=== PATIENT | male | born 1970 ===

== ENCOUNTER 2021-05-07 17:37 | Emergency (ER) | payer OTHER, SELFPAY ==
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
[2021-05-07 17:49] VITALS: BP 140/65; BP 157/84; PULSE 94; PULSE 98; RESP 17; TEMP 36.8; O2SAT 100; O2SAT 99; BMI 14.8
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
[2021-05-07] MEDS: iohexoL 350 MG/ML 100 ML INFUS..BTL IV (19:38)
[2021-05-07] MEDS: 0.9 % Sodium Chloride 1,000 ML 999 ML IV (19:56)
[2021-05-07 19:57] VITALS: BP 148/80; PULSE 63; RESP 16; O2SAT 95
--- NOTE | 2021-05-07 21:20 | PC.NURSE ---
PT CT SHOWS CERVICAL SPINE HEMATOMA. PT IN HARD COLLAR, CERVICLE SPINE PRECAUTIONS MAINTAINED. PT AWARE TO REMAIN FLAT, STILL. PT ABLE TO MOVE ALL EXTREMITIES. NO NEURO DEFICITS NOTED.
[2021-05-07 21:25] LABS: MANUAL DIFF FLAG NO
[2021-05-07 21:29] LABS: Basophils Percent Auto 0.3 % (0-2); Eosinophils Absolute Auto 0.1 X10*3/uL (0.0-0.4); Hematocrit 35.3 % (42.0-52.0); Hemoglobin 11.6 g/dl (14.0-18.0); Imm Gran Abs Auto 0.05 X10*3/uL (0.00-0.03); Imm Gran Pct Auto 0.5 % (0.0-0.4); Lymphocytes Absolute Auto 2.1 X10*3/uL (1.2-4.9); Lymphocytes Percent Auto 20.2 % (20-40); Mean Corpuscular HGB Conc 32.9 g/dl (31.0-36.0); Mean Corpuscular Hemoglobin 30.4 pg (27.0-33.0); Mean Corpuscular Volume 92.7 fL (80.0-98.0); Mean Platelet Volume 8.9 fL (9.4-12.4); Monocytes Absolute Auto 0.7 X10*3/uL (0.1-1.2); Monocytes Percent Auto 6.2 % (2-11); Neutrophils Absolute Auto 7.5 x10*3/uL (2.0-8.3); Neutrophils Percent Auto 71.8 % (45-73); Platelet Count 315 X10*3/uL (160-400); Red Blood Count 3.81 X10*6/uL (4.60-5.80); Red Cell Distribution Width 14.3 % (11.0-16.0); White Blood Count 10.5 X10*3/uL (4.8-10.8)
[2021-05-07 21:34] LABS: INTERNATIONAL NORM RATIO 1.1 (0.9-1.1); Prothrombin Time 12.2 SEC (9.9-13.0)
--- NOTE | 2021-05-07 21:35 | PC.NURSE ---
VOIDED X 2 IN URINAL.
[2021-05-07 21:36] LABS: Partial Thromboplastin Time 35.4 SEC (24.1-38.0)
--- NOTE | 2021-05-07 21:45 | PC.NURSE ---
NURSE TO NURSE REPORT GIVEN TO WINNIE AT [facility]. WAITING AMBULANCE TRANSFER.
[2021-05-07 21:51] LABS: Alanine Aminotransferase 33 U/L (0-40); Albumin Level 3.1 g/dL (3.5-5.0); Alkaline Phosphatase 144 U/L (39-117); Anion Gap 9 (12-20); Aspartate Amino Transferase 45 U/L (5-37); Bilirubin Total < 0.2 mg/dL (0.0-1.0); Blood Urea Nitrogen 16 mg/dL (9-16); COVID-19 Test Negative (Negative); Calcium 8.1 mg/dL (8.4-10.2); Carbon Dioxide 26 mmol/L (22-29); Chloride 106 mmol/L (96-108); Creatinine Clr Calc Pharmacy 66.7; Estimated Glomerular Filt Rate > 60; Glucose Random 93 mg/dL (60-115); Potassium 3.9 mmol/L (3.3-5.1); Sodium 137 mmol/L (135-145); Total Protein 5.9 g/dL (6.5-8.0)
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
== END 2021-05-07 22:37 | disposition short-term general hospital (02) ==
PROVIDERS: Physician Assistant; Emergency Provider Internal Medicine; PCP Physician Assistant
DX: S14.105A Unspecified injury at C5 level of cervical spinal cord, initial encounter (principal); V03.00XA Pedestrian on foot injured in collision with car, pick-up truck or van in nontraffic accident, initial encounter; Y93.01 Activity, walking, marching and hiking; Y92.414 Local residential or business street as the place of occurrence of the external cause; Y99.9 Unspecified external cause status
CPT/HCPCS: 36415; 70450; 71260; 72125; 74177; 80053; 85025; 85610; 85730; 87635; 96360; 99285; Q9967

== ENCOUNTER 2021-08-17 14:43 | Emergency (ER) | payer OTHER, SELFPAY ==
--- NOTE | ~2021-08-17 | XR_ITS ---
EXAMINATION: XR ELBOW, LEFT CLINICAL INFORMATION: Injury, swelling. COMPARISON: No similar priors. TECHNIQUE: AP, lateral, and oblique views of the left elbow. FINDINGS: No acute fractures or malalignment. No joint effusion. There is significant soft tissue swelling adjacent to the olecranon process. XR/XR elbow LT min 3V IMPRESSION: No acute fractures or malalignment. Significant soft tissue swelling adjacent to the olecranon process be seen with bursitis. Correlate clinically.
[2021-08-17 15:33] VITALS: BP 146/85; PULSE 61; RESP 18; TEMP 36.6; O2SAT 96; BMI 14.3
== END 2021-08-17 17:45 | disposition left against medical advice (07) ==
PROVIDERS: Emergency Provider Emergency Medicine; PCP Physician Assistant
DX: M25.422 Effusion, left elbow (principal)
CPT/HCPCS: 73080; 99282; 99283

== ENCOUNTER 2023-12-30 13:33 | Inpatient (IN) | payer OTHER, SELFPAY ==
--- NOTE | ~2023-12-30 | XR_ITS ---
EXAMINATION: XR CHEST CLINICAL INFORMATION: Rapid, unexplained weight loss, heavy smoker COMPARISON: Chest radiograph 08/17/2018 TECHNIQUE: 2 views of the chest were obtained. FINDINGS: The lungs are adequately expanded. No focal consolidation. No pleural effusions or pneumothorax. The cardiomediastinal silhouette is within normal limits. No acute osseous abnormality. XR/XR chest 2V IMPRESSION: No acute pulmonary disease. Electronically signed by: Leander Farias MD 01/04/2024 08:40 AM EDT
--- NOTE | 2023-12-30 13:43 | ED.GENADULT ---
HPI - General Adult General Chief complaint: Psychiatric Symptoms Stated complaint: Crisis Time Seen by Provider: 12/30/23 13:43 Source: patient Mode of arrival: ambulatory Limitations: no limitations History of Present Illness ED Provider: marielena LONG narrative: Patient is a 53-year-old male with history of asthma, substance use disorder on methadone presenting to the emergency department with complaint of depression, suicidal ideation, history of attempting to overdose on street drugs in the past, plan would be to do the same now. Reports decreased appetite. Admits to recent cocaine and heroin use. Denies any homicidal ideation. States he has been off of his wellbutrin for the past month. Denies any current physical complaints. MD complaint: depression, suicidal ideation Onset (ago): day(s) Treatments prior to arrival: none Related Data Home Medications ?Medication ?Instructions ?Recorded ?Confirmed No Known Home Meds 12/30/23 12/30/23 Allergies Allergy/AdvReac Type Severity Reaction Status Date / Time seafood Allergy Severe anaphylaxis Uncoded 12/30/23 14:02 SEAFOOD Allergy Unknown SWELLING Uncoded 12/30/23 14:02 Review of Systems Review of Systems: As per HPI. Yes all other systems are reviewed and are negative Constitutional: Constitutional: Reports as per HPI [facility] Past Medical History Medical History (Updated 12/30/23 @ 16:27 by Mena Limon NP) Asthma Social History Social History Smoked in Last 30 Days: No Use of substances other than those prescribed or required for medical reasons: Yes Advance Directives: No Advance Directives Information Provided: Yes Physical Exam ED Vital Signs: Vital Signs - 24 hr 12/30/23 14:00 12/30/23 17:30 Temperature 98.9 F Pulse Rate 92 Respiratory Rate 18 16 Blood Pressure 121/82 Pulse Oximetry 98 Oxygen Delivery Method Room Air BMI result Body Mass Index 23.6 Vital signs have been reviewed and appear to be correct. Blood pressure normal. Heart rate normal. Respiratory rate normal. Temperature normal. Oxygen saturation normal. Const General: cooperative, healthy appearing and no acute distress Nutritional Appearance: thin Orientation/consciousness: oriented to person, oriented to place, oriented to time and patient oriented x3 Limitations: no limitations HENMT Head: Yes normocephalic and Yes atraumatic Ears: external ears normal General nose exam: Normal external nose present Face and sinus: Yes face symmetric Mouth: oropharynx normal and moist mucous membranes Throat: Yes uvula midline Eyes Pupils: Equal, round and reactive pupils present Neck Neck: Yes normal visual inspection and Yes supple Resp Effort & Inspection: normal respiratory effort and able to speak in complete sentences Auscultation: clear to auscultation bilaterally Cardio Rate: regular rate Rhythm: regular rhythm Heart sounds: S1 normal heart sound present and S2 normal heart sound present GI Palpation (GI): Soft to palpation and nontender Auscultation: normoactive bowel sounds General: Yes no CVA tenderness Back/Spine/Pelvis Back: no CVA tenderness Skin General skin exam: elasticity normal and turgor normal Neuro General: oriented to person, oriented to place, oriented to time, patient oriented x3, moves all extremities, no focal motor deficits and CN's II-XI intact bilaterally Cranial nerves: Yes Equal, round and reactive pupils present Cognition (Neuro): normal cognition Extrem General: Yes full ROM, Yes no pedal edema and Yes no calf tenderness Psych Mental Status: mental status grossly normal Affect: normal affect Thought process: Normal thought process present Medical Decision Making Medical Decision Making MDM Narrative: Patient is a 53-year-old male with history of asthma, substance use disorder on methadone presenting to the emergency department with complaint of depression, suicidal ideation, history of attempting to overdose on street drugs in the past, plan would be to do the same now. On exam patient is awake, A+Ox3, VS WNL, afebrile, normal neurological exam without focal deficits, physical exam findings as above. Given reported symptoms and physical exam findings, initial differential includes depression, anxiety, suicidal ideation. Labs notable for slight anemia not at transfusion level. Urine drug screen positive for opiates, methadone, fentanyl, cocaine, THC. Will medically clear patient at this time for CARE team evaluation. Per CARE team patient too drowsy for assessment, will reattempt in the morning. Differential Diagnosis Differential Diagnoses: The differential diagnosis associated with the presentation includes As per [facility]. Admission/Observation Consideration of admission/observation: Escalation of care including admission/observation considered Consult Healthcare Provider Management of the patient was discussed with: Behavioral Health Provider Lab Data [facility] Lab Attestation statement: I reviewed the patient's lab results. As per MDM 12/30/23 14:25 12/30/23 14:24 Labs: Lab Results 12/30/23 12/30/23 Range/Units 14:24 14:25 WBC 8.2 (4.8-10.8) X10*3/uL RBC 4.01 L (4.60-5.80) X10*6/uL Hgb 12.8 L (14.0-18.0) g/dl Hct 37.6 L (42.0-52.0) % MCV 93.8 (80.0-98.0) fL MCH 31.9 (27.0-33.0) pg MCHC 34.0 (31.0-36.0) g/dl RDW 12.8 (11.0-16.0) % Plt Count 287 (160-400) X10*3/uL MPV 10.0 (9.4-12.4) fL Immature Gran % (Auto) 0.4 (0.0-0.4) % Neut % (Auto) 69.9 (45-73) % Lymph % (Auto) 23.5 (20-40) % [place] % (Auto) 4.6 (2-11) % Eos % (Auto) 1.2 (0-4) % Baso % (Auto) 0.4 (0-2) % Lymph # (Auto) 1.9 (1.2-4.9) X10*3/uL [place] # (Auto) 0.4 (0.1-1.2) X10*3/uL Eos # (Auto) 0.1 (0.0-0.4) X10*3/uL Baso # (Auto) 0.0 (0.0-0.2) X10*3/uL Abs Immat Gran (auto) 0.03 (0.00-0.03) X10*3/uL Absolute Neuts (auto) 5.8 (2.0-8.3) x10*3/uL Absolute Nucleated RBC 0.000 (0.0-0.012) X10*3/uL Nucleated RBC % (auto) 0.0 (0.0-0.2) /100WBC Sodium 140 (135-145) mmol/L Potassium 3.9 (3.3-5.1) mmol/L Chloride 105 (96-108) mmol/L Carbon Dioxide 29 (22-29) mmol/L Anion Gap 10 L (12-20) BUN 12 (9-16) mg/dL Creatinine 1.21 (0.5-1.4) mg/dL Estim Creat Clear Calc 67.5 Estimated GFR > 60 Random Glucose 98 (60-115) mg/dL Calcium 8.9 D (8.4-10.2) mg/dL Total Bilirubin 0.2 (0.0-1.0) mg/dL AST 23 (5-37) U/L ALT 19 (0-40) U/L Alkaline Phosphatase 106 (39-117) U/L Total Protein 6.6 (6.5-8.0) g/dL Albumin 3.8 (3.5-5.0) g/dL Urine Color Dark Yellow Urine Appearance Clear Urine pH 5.5 (5.0-9.0) Ur Specific [place] >= 1.030 H (1.005-1.025) Urine Protein 30 (1+) H (Neg-Trace) mg/dL Urine Glucose (UA) Negative (Negative) mg/dL Urine Ketones Trace (Negative) mg/dL Urine Blood Negative (Negative) Urine Nitrite Negative (Negative) Ur Leukocyte Esterase Trace H (Negative) Urine RBC 0-2 (0-2) /HPF Urine WBC 0-5 (0-5) /HPF Ur Squamous Epith Cells 0-2 (0-2) /HPF Urine Bacteria None Seen (None Seen) Hyaline Casts 0-2 (0-2) /LPF Urine Opiates Screen POSITIVE H (Not Detect) Ur Buprenorphine Scrn Not Detected (Not Detect) ng/mL Ur Oxycodone Screen Not Detected (Not Detect) ng/mL Urine Methadone Screen Positive H (Not Detect) ng/mL Urine Fentanyl Screen POSITIVE H (Not Detect) Ur Barbiturates Screen Not Detected (Not Detect) Ur Phencyclidine Scrn Not Detected (Not Detect) Ur Amphetamines Screen Not Detected (Not Detect) U Benzodiazepines Scrn Not Detected (Not Detect) Urine Cocaine Screen POSITIVE H (Not Detect) U Marijuana (THC) Screen POSITIVE H (Not Detect) Ethyl Alcohol < 10 mg/dL External Record Review External record reviewed: Inpatient record, Office record and Outpatient record Discharge Plan Discharge Clinical Impression: Suicidal ideation, Depression Patient Disposition: Still a Patient Prescriptions: No Action No Known Home Meds Interventions: [place]-Suicide Risk Severity Scale Last Done: 12/30/23 13:58 Print Language: Ethiopian
[2023-12-30 14:00] VITALS: BP 121/82; PULSE 92; RESP 18; TEMP 37.2; O2SAT 98; BMI 23.6
[2023-12-30 14:30] LABS: MANUAL DIFF FLAG NO
[2023-12-30 14:35] LABS: Appearance Urine Clear; Color Urine Dark Yellow; Glucose Urine UA Negative (Negative); Leukocyte Esterase Urine Trace (Negative); Nitrite Urine Negative (Negative); PH 5.5 (5.0-9.0); Specific Gravity - Urine >= 1.030 (1.005-1.025); UMIC TRIGGER UACC YES; Urine Blood Negative (Negative); Urine Ketones Trace mg/dL (Negative); Urine Protein 30 (1+) mg/dL (Neg-Trace)
[2023-12-30 14:36] LABS: Basophils Percent Auto 0.4 % (0-2); Eosinophils Absolute Auto 0.1 X10*3/uL (0.0-0.4); Eosinophils Percent Auto 1.2 % (0-4); Hematocrit 37.6 % (42.0-52.0); Hemoglobin 12.8 g/dl (14.0-18.0); Imm Gran Abs Auto 0.03 X10*3/uL (0.00-0.03); Imm Gran Pct Auto 0.4 % (0.0-0.4); Lymphocytes Absolute Auto 1.9 X10*3/uL (1.2-4.9); Lymphocytes Percent Auto 23.5 % (20-40); Mean Corpuscular Hemoglobin 31.9 pg (27.0-33.0); Mean Corpuscular Volume 93.8 fL (80.0-98.0); Monocytes Absolute Auto 0.4 X10*3/uL (0.1-1.2); Monocytes Percent Auto 4.6 % (2-11); Neutrophils Absolute Auto 5.8 x10*3/uL (2.0-8.3); Neutrophils Percent Auto 69.9 % (45-73); Platelet Count 287 X10*3/uL (160-400); Red Blood Count 4.01 X10*6/uL (4.60-5.80); Red Cell Distribution Width 12.8 % (11.0-16.0); White Blood Count 8.2 X10*3/uL (4.8-10.8)
[2023-12-30 14:46] LABS: Bacteria Urine None Seen (None Seen); Hyaline Casts Urine 0-2 /LPF (0-2); RBC Urine 0-2 /HPF (0-2); Squamous Epithelial Cell Urine 0-2 /HPF (0-2); WBC Urine 0-5 /HPF (0-5)
[2023-12-30 14:51] LABS: Amphetamine Screen Urine Not Detected (Not Detect); Barbiturates, Urine Not Detected (Not Detect); Benzodiazepines Screen Urine Not Detected (Not Detect); Buprenorphine Scr Not Detected (Not Detect); Cannabinoid Screen Urine POSITIVE (Not Detect); Cocaine Screen Urine POSITIVE (Not Detect); Fentanyl, urine POSITIVE (Not Detect); Methadone Screen, Urine Positive (Not Detect); Opiate Screen Urine POSITIVE (Not Detect); Oxycodone Screen Urine Not Detected (Not Detect); Phencyclidine Screen Urine Not Detected (Not Detect)
[2023-12-30 15:11] LABS: Alanine Aminotransferase 19 U/L (0-40); Albumin Level 3.8 g/dL (3.5-5.0); Alkaline Phosphatase 106 U/L (39-117); Anion Gap 10 (12-20); Aspartate Amino Transferase 23 U/L (5-37); Bilirubin Total 0.2 mg/dL (0.0-1.0); Blood Urea Nitrogen 12 mg/dL (9-16); Calcium 8.9 mg/dL (8.4-10.2); Carbon Dioxide 29 mmol/L (22-29); Chloride 105 mmol/L (96-108); Creatinine Clr Calc Pharmacy 67.5; Estimated Glomerular Filt Rate > 60; Ethanol < 10 mg/dL; Glucose Random 98 mg/dL (60-115); Potassium 3.9 mmol/L (3.3-5.1); Sodium 140 mmol/L (135-145); Total Protein 6.6 g/dL (6.5-8.0)
[2023-12-30 17:30] VITALS: RESP 16
--- NOTE | 2023-12-30 17:42 | PC.NURSE ---
Patient resting in bed at this time, respirations even and unlabored, no apparent distress. Offering no complaints at this time. Pt is endorsing suicidal thoughts with a plan to overdose. Patient aware of plan of care for CARE team follow up tomorrow when he is more sober
--- NOTE | 2023-12-30 18:58 | PC.NURSE ---
Assumed care of pt. Pt lying on stretcher, respirations even and unlabored, no acute distress at this time.
[2023-12-30 22:00] VITALS: RESP 16
[2023-12-31 05:29] VITALS: BP 150/69; PULSE 51; RESP 16; O2SAT 98
--- NOTE | 2023-12-31 08:47 | HE.PHANOTE ---
RE methadone Pt receives methadone 60 mg from [facility]. Last dosed 12/30/23 @[id number] [address]
[2023-12-31] MEDS: methADONE HCl 20 MG/2 ML ORAL.CONC 60 MG PO (08:54)
--- NOTE | 2023-12-31 13:34 | MHC.CARE ---
T/W faxed over clinical information including crisis assessment, labs, utox, and facesheet to [facility] for consideration of inpatient admission for 01/01/24 when they stated they could admit
[2023-12-31 19:15] VITALS: BP 135/73; PULSE 50; RESP 16; O2SAT 98
[2024-01-01 04:05] VITALS: BP 156/80; PULSE 52; RESP 15; TEMP 36.9; O2SAT 98
--- NOTE | 2024-01-01 07:49 | PC.NURSE ---
Assumed care of patient at 0645, patient appears to be in no apparent distress this am, ate breakfast and is now currently sitting watching TV. Pt offers no complaints or concerns to this RN. Continue plan of care for inpatient bedsearch at this time
[2024-01-01] MEDS: methADONE HCl 20 MG/2 ML ORAL.CONC 60 MG PO (10:08)
[2024-01-01 15:11] VITALS: RESP 14
--- NOTE | 2024-01-01 19:13 | MHC.CARE ---
pt continues to be inpatient bedsearch. Pt initial EXA completed, confirmation submission ID # [id number]
--- NOTE | 2024-01-01 19:30 | PC.NURSE ---
patient appears in no distress at present relaxing in room, respirations even and unlabored.
--- NOTE | 2024-01-02 07:27 | PC.NURSE ---
Assumed care of patient at 0645. At this time the patient is eating breakfast in their room. No signs of distress observed.
[2024-01-02 08:14] VITALS: BP 151/80; PULSE 55; RESP 14; O2SAT 99
--- NOTE | 2024-01-02 08:37 | ECG_ITS ---
Test Reason : check for prelonged QT Blood Pressure : / mmHG Vent. Rate : 068 BPM Atrial Rate : 068 BPM P-R Int : 128 ms QRS Dur : 086 ms QT Int : 412 ms P-R-T Axes : 078 043 074 degrees QTc Int : 438 ms Normal sinus rhythm Biatrial enlargement Nonspecific ST abnormality Abnormal ECG No previous ECGs available Referred By: Generic ED Physician Electronically Signed By:TARAS VARGAS
--- NOTE | 2024-01-02 08:54 | MHC.EDTECH ---
Patient ambulated to bathroom to shower, linen and room clean. RN aware
[2024-01-02] MEDS: methADONE HCl 20 MG/2 ML ORAL.CONC 60 MG PO (09:34)
[2024-01-02 13:13] VITALS: BP 157/85; PULSE 62; RESP 16; TEMP 36.6; O2SAT 98
[2024-01-02 13:14] VITALS: BMI 14.2
[2024-01-02] MEDS: Flu Vacc TS2024-25(6mos up)/PF 0.5 ML SYRINGE IM (14:03)
--- NOTE | 2024-01-02 17:09 | PC.ADMIT ---
Maxi was admitted to at 1345? from the pod on a CV for treatment of SI and polysubstance use. He states that his suicidal ideation arises from multiple factors including losing his 22 year old son to cancer and having both his income and housing at risk. He felt that it was time to give up and attempted to end his life via overdose. At age 53 this is his first psychiatric admission, though he has been a patient of [facility] years ago for treatment of appendicitis and bowel obstruction. He was initially upset to have survived his suicide attempt, but now is glad to be alive and denies SI stating, ?I still feel afraid though.? He acknowledges occasional desires to self harm, but will come to staff if these urges occur. He is polite and friendly throughout the admission process with appropriate speech and a linear thought process.Tox screen is positive for THC, methadone, cocaine, fentanyl, and opiates. He endorses daily use of marijuana, crack cocaine, opiates, and methadone which he received through [facility] (60mg dose confirmed in ED). He denies withdrawal symptoms. He is only an occasional alcohol user, thoguh when he drinks, about once per month, he has about 6. He ambulates independently but reports falls in the past 6 months, primarily related to intoxication Skin check was remarkable only for surgical scars and bilateral onychomycosis. Maxi is concerned about his severe weight loss, over 60lbs leaving him at 95lbs and a BMI <15. Patient is placed on 15 minute checks for safety.
[2024-01-02 19:39] VITALS: BP 137/66; PULSE 55; TEMP 35.8; O2SAT 97
[2024-01-03] MEDS: methADONE HCl 20 MG/2 ML ORAL.CONC 60 MG PO (07:43)
[2024-01-03 08:00] VITALS: BP 141/81; PULSE 60; RESP 18; TEMP 36.4; O2SAT 96
[2024-01-03 08:42] LABS: Estimated Average Glucose 100 mg/dL; Hemoglobin A1C 134.9903 umol/L; Hemoglobin A1c % 5.1 % (<6.0); Total Hemoglobin (HGBA1C) 4190.5025 umol/L
[2024-01-03 08:57] LABS: Cholesterol 215 mg/dL (<200); HDL Cholesterol 63 mg/dL (>40); LDL Cholesterol Calculated 136 mg/dL (<100); Triglycerides 84 mg/dL (<150)
[2024-01-03] MEDS: Milk of Magnesia 30 ML ORAL.SUSP PO (09:39)
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
[2024-01-03] MEDS: polyethylene glycoL 3350 17 GM POWD.PACK PO (12:10)
--- NOTE | 2024-01-03 13:46 | MHC.CLN ---
RE: CONSULT HT 69 WT 43.6KG BMI 14.2 IBW 160#+/-10% PT IS 60% IBW RANGE INDICATES SEVERELY UNDER WT FOR HT PREVIOUS WT HX FOLLOWS: CURRENT 43.6KG (01/02/24) PREVIOUS WT 45.3KG (08/17/21) 45.4 KG (05/07/21) PT'S WT STABLE FROM PREVIOUS ADMISSION HISTORY PT REPORTS DAILY USE OF THC, COCAINE, HEROIN, METHADONE AND OPIATES AND MAY BE CONTRIBUTOR TO LOW WT PT QUALIFIES FOR MALNUTRITION IN THE CONTEXT OF SOCIAL, BEHAVIORAL/ENVIRONMENTAL CIRCUMSTANCES REVIEWED LABS-CMP WNL ALBUMIN 3.8 WNL DIET RX: REGULAR-APPROPRIATE RECOMMEND ADDING ENSURE BID TO INCREASE KCALS SUPP TO PROVIDE 700KCALS, 40G PROTEIN WEEKLY WEIGHTS
--- NOTE | 2024-01-03 15:32 | MHC.RECOVRN ---
Pt had positive screen for unhealthy alcohol use on admission, subsequently met with t/w to discuss alcohol use and recovery supports/options. Pt reported he only drinks on special occasions and does not have an issue with alcohol. Declined need for further assessment.
--- NOTE | 2024-01-03 17:37 | P.PNPSI_ITS ---
Subjective Subjective Date of Service: 01/03/24 Reason For Visit: depression/SI Diagnostics Vital Signs (24Hr): Vital Signs - 24 hr 01/02/24 19:39 01/03/24 08:00 Temperature 96.4 F L 97.6 F Pulse Rate 55 60 Respiratory Rate 18 Blood Pressure 137/66 141/81 H Pulse Oximetry 97 96 Oxygen Delivery Method Room Air Room Air BMI result Body Mass Index 14.2 Labs 12/30/23 14:25 12/30/23 14:24 Labs: Laboratory Results - last 48 hr 01/03/24 08:11 Estimat Average Glucose 100 Hemoglobin A1c % 5.1 Triglycerides 84 Cholesterol 215 H LDL Cholesterol, Calc 136 H HDL Cholesterol 63 Medications Medications Current Medications Acetaminophen (Acetaminophen 325 Mg Tablet) 650 mg PO Q6H PRN PRN Reason: Headache/Pain Mild Scale (1-3) Al Hydroxide/Mg Hydroxide (Magnesium Hydrox/Alum Hydrox 30 Ml Oral.Susp) 30 ml PO Q6H PRN PRN Reason: Heartburn/Nausea Bupropion HCl (Bupropion Hcl Xl 150 Mg Tab.Er.24h) 150 mg PO DAILY [facility] Clonidine HCl (Clonidine Hcl 0.1 Mg Tablet) 0.1 mg PO Q4H PRN; Protocol PRN Reason: anxiety/insomnia Hydroxyzine HCl (Hydroxyzine Hcl 50 Mg Tablet) 50 mg PO Q6H PRN PRN Reason: Anxiety Magnesium Hydroxide (Milk Of Magnesia 30 Ml Oral.Susp) 30 ml PO DAILY PRN PRN Reason: Constipation Last Admin: 01/03/24 09:39 Dose: 30 ml Methadone HCl (Methadone Hcl 20 Mg/2 Ml Oral.Conc) 60 mg PO DAILY [facility] Last Admin: 01/03/24 07:43 Dose: 60 mg Nicotine (Nicotine 21 Mg Patch.Td24) 21 mg TRANSDERMA DAILY PRN PRN Reason: smoking cessation Nicotine Polacrilex (Nicotine Polacrilex 2 Mg Gum) 4 mg BUCCAL Q2H PRN PRN Reason: Nicotine Cravings Polyethylene Glycol (Polyethylene Glycol 3350 17 Gm Powd.Pack) 17 gm PO DAILY PRN PRN Reason: Constipation Allergies Allergies Allergy/AdvReac Type Severity Reaction Status Date / Time seafood Allergy Severe anaphylaxis Uncoded 12/30/23 14:02 SEAFOOD Allergy Unknown SWELLING Uncoded 12/30/23 14:02 Assessment & Plan Assessment & Plan (1) MDD (major depressive disorder), recurrent severe, without psychosis: Status: Acute Code(s): F33.2 - Major depressive disorder, recurrent severe without psychotic features (2) Cocaine use disorder: Status: Acute Code(s): F14.10 - Cocaine abuse, uncomplicated (3) Opioid use disorder: Status: Acute Code(s): F11.90 - Opioid use, unspecified, uncomplicated (4) PTSD (post-traumatic stress disorder): Status: Acute Code(s): F43.10 - Post-traumatic stress disorder, unspecified Time Spent With Patient Time: Total time managing care of this patient today ____ minutes.
[2024-01-03 20:00] VITALS: BP 130/70; PULSE 80; RESP 16; TEMP 36.9; O2SAT 98
[2024-01-03 21:57] VITALS: BP 141/82
[2024-01-03] MEDS: cloNIDine HCL 0.1 MG TABLET PO (21:57)
[2024-01-03] MEDS: hydrOXYzine HCL 50 MG TABLET PO (21:58)
[2024-01-04 08:00] VITALS: BP 135/66; PULSE 62; RESP 16; TEMP 36.9; O2SAT 99
[2024-01-04] MEDS: methADONE HCl 20 MG/2 ML ORAL.CONC 60 MG PO (08:01)
[2024-01-04] MEDS: buPROPion HCl XL 150 MG TAB.ER.24H PO (08:50)
--- NOTE | 2024-01-04 16:48 | P.PNPSI_ITS ---
Subjective Subjective Date of Service: 01/04/24 Reason For Visit: depression/SI Interim History: Met with patient; discussed with team Patient remains depressed however he says it was helpful to go to groups. Some trouble sleeping but clonidine helped; struggling with excessive self- deprecating thoughts and guilt. Agrees to increase Wellbutrin to 300 mg Mental Status Exam Mental Status Exam Narrative: Pt is alert and oriented; behavior is slow moving but cooperative, friendly and calm; patient is not in distress; dressed in casual attire, very thin, scruffy facial hair; mood is described as down and affect congruent, downcast; eye contact limited; Speech slowed and soft volume; normal prosody; psychomotor retardation present; thought process is organized and goal directed; Thought content is on depression, excessive guilt, of son, tx; otherwise pertinent to relevant topics and without any delusional content, paranoid ideations or grandiosity; denies any SI/HI. Denies AVH; there is no evidence of perceptual disturbance. Patients insight and judgment impaired. Diagnostics Vital Signs (24Hr): Vital Signs - 24 hr 01/03/24 20:00 01/03/24 21:57 01/04/24 08:00 Temperature 98.4 F 98.4 F Pulse Rate 80 62 Respiratory Rate 16 16 Blood Pressure 130/70 141/82 H 135/66 Pulse Oximetry 98 99 Oxygen Delivery Method Room Air Room Air BMI result Body Mass Index 14.2 Labs 12/30/23 14:25 12/30/23 14:24 Labs: Laboratory Results - last 48 hr 01/03/24 08:11 Estimat Average Glucose 100 Hemoglobin A1c % 5.1 Triglycerides 84 Cholesterol 215 H LDL Cholesterol, Calc 136 H HDL Cholesterol 63 Imaging Radiology Impressions: ITS Impressions Chest X-Ray 01/03/24 15:40 IMPRESSION: No acute pulmonary disease. Electronically signed by: Leander Farias MD 01/04/2024 08:40 AM EDT Medications Medications Current Medications Acetaminophen (Acetaminophen 325 Mg Tablet) 650 mg PO Q6H PRN PRN Reason: Headache/Pain Mild Scale (1-3) Al Hydroxide/Mg Hydroxide (Magnesium Hydrox/Alum Hydrox 30 Ml Oral.Susp) 30 ml PO Q6H PRN PRN Reason: Heartburn/Nausea Bupropion HCl (Bupropion Hcl Xl 300 Mg Tab.Er.24h) 300 mg PO DAILY [facility] Clonidine HCl (Clonidine Hcl 0.1 Mg Tablet) 0.1 mg PO Q4H PRN; Protocol PRN Reason: anxiety/insomnia Last Admin: 01/03/24 21:57 Dose: 0.1 mg Clonidine HCl (Clonidine Hcl 0.1 Mg Tablet) 0.1 mg PO BEDTIME [facility]; Protocol Hydroxyzine HCl (Hydroxyzine Hcl 50 Mg Tablet) 50 mg PO Q6H PRN PRN Reason: Anxiety Last Admin: 01/03/24 21:58 Dose: 50 mg Magnesium Hydroxide (Milk Of Magnesia 30 Ml Oral.Susp) 30 ml PO DAILY PRN PRN Reason: Constipation Last Admin: 01/03/24 09:39 Dose: 30 ml Methadone HCl (Methadone Hcl 20 Mg/2 Ml Oral.Conc) 60 mg PO DAILY [facility] Last Admin: 01/04/24 08:01 Dose: 60 mg Nicotine (Nicotine 21 Mg Patch.Td24) 21 mg TRANSDERMA DAILY PRN PRN Reason: smoking cessation Nicotine Polacrilex (Nicotine Polacrilex 2 Mg Gum) 4 mg BUCCAL Q2H PRN PRN Reason: Nicotine Cravings Polyethylene Glycol (Polyethylene Glycol 3350 17 Gm Powd.Pack) 17 gm PO DAILY PRN PRN Reason: Constipation Allergies Allergies Allergy/AdvReac Type Severity Reaction Status Date / Time seafood Allergy Severe anaphylaxis Uncoded 12/30/23 14:02 SEAFOOD Allergy Unknown SWELLING Uncoded 12/30/23 14:02 Assessment & Plan Assessment & Plan (1) MDD (major depressive disorder), recurrent severe, without psychosis: Status: Acute Code(s): F33.2 - Major depressive disorder, recurrent severe without psychotic features (2) PTSD (post-traumatic stress disorder): Status: Acute Code(s): F43.10 - Post-traumatic stress disorder, unspecified (3) Cocaine use disorder: Status: Acute Code(s): F14.10 - Cocaine abuse, uncomplicated (4) Opioid use disorder: Status: Acute Code(s): F11.90 - Opioid use, unspecified, uncomplicated Plan Pt is a 53 male with PMH depression, PtSD, cocaine/heroin abuse, no methadone, who presents for worsening depression, SI resulting in suicide attempt by overdose. Patient reports he has been on and off depressed for years. This summer his depression worsened when he was worried about eviction and then worried about his Section 8 housing welfare being canceled. This stress added on to chronic moderate depression triggered him to relapse on daily crack/heroin and patient further isolated himself from his family and sunk into a deeper depression and endorses, diminished interest, excessive guilt, low energy, poor concentration, poor appetite with significant weight loss, trouble sleeping and SI. During the summer he was started on low dose of Wellbutrin but did not take it for more than a few weeks which he regrets. This past week patient, embroiled in substance abuse, depression, frustration, while at a friend's house he saw a bottle of pills and in front of his friend, grabbed it and swallowed them in an impulsive suicide attempt. His friend made him vomited up and brought him to the hospital. Patient denies any history of manic type symptoms or behavior; denies any AVH; denies any history of suicide attempts prior to this. Every few months relapses with cocaine/heroin abuse; denies other drugs including alcohol abuse. Formulation/clinical reason: Years of depression and untreated trauma; no therapy and no real medication trials. Patient agrees to restart Wellbutrin sits he tolerated it and it helped him to quit smoke cigarettes. Discussing treatment for substance abuse; patient was sober on Vivitrol and wished to his back on it. Currently on methadone Hospital course: 01/03 Patient remains depressed however he says it was helpful to go to groups. Some trouble sleeping but clonidine helped; struggling with excessive self- deprecating thoughts and guilt. Agrees to increase Wellbutrin to 300 mg -reviewed labs, x-ray with patient Plan: CV Q 15 minute checks Increase to Wellbutrin XL 300 mg Clonidine p.r.n. Methadone 60 mg Ordered chest x-ray which was unremarkable; patient thinks weight loss was most likely attributed to low appetite due to depression however it was a significant amount, 60+ lb and patient is a chronic heavy smoker; denies ever sharing needles XR/XR chest 2V IMPRESSION: No acute pulmonary disease. Patient educated on: diagnosis, medication risk/benefits, substance abuse, therapeutic strategies and medical condition Informed Consent: understands Reason for continued inpatient stay Substantial Risk for: rapid decompensation Time Spent With Patient Time: Total time managing care of this patient today ____ minutes.
[2024-01-04 20:00] VITALS: BP 144/65; PULSE 78; RESP 18; TEMP 36.7; O2SAT 99
[2024-01-04] MEDS: hydrOXYzine HCL 50 MG TABLET PO (21:58)
[2024-01-04] MEDS: cloNIDine HCL 0.1 MG TABLET PO (22:03)
[2024-01-05 07:00] VITALS: BMI 15.3
[2024-01-05] MEDS: methADONE HCl 20 MG/2 ML ORAL.CONC 60 MG PO (07:49)
[2024-01-05 08:00] VITALS: BP 120/72; PULSE 62; RESP 18; TEMP 36.8; O2SAT 98
[2024-01-05] MEDS: buPROPion HCl XL 300 MG TAB.ER.24H PO (08:44)
--- NOTE | 2024-01-05 12:15 | P.PNPSI_ITS ---
Subjective Subjective Date of Service: 01/05/24 Reason For Visit: depression/SI Interim History: Maxi reports he is doing OK . He reports feeling comfortable on the unit and supported. States his sleeping medications are helpful and he is hopeful with Wellbutrin initaiton. I guess it is just best to take it day by day States he met with the medical student today. He discussed enjoying art group, visiting with peers in the kitchen (where he is found today). This place encourages us to be happy, and I think that is healing for me. I am working on it. Medication Compliance: Yes Side effects from medications: No Attending Groups: Yes Review of Systems Medical Review of Systems: unchanged Review of Systems Review of Systems As per HPI. Constitutional: Reports as per HPI Mental Status Exam Mental Status Exam Patient Appearance: Fatigued Patient Orientation: Person, Place, Time and Situation Level of Consciousness: Alert Patient Behavior: Talkative, Cooperative and Good Eye Contact Mood Description: Depressed Affect Description: Flat Patient Cognition Impaired: No Ability to Follow Directions: Good Speech Pattern: Spontaneous Speech Memory Description: Intact Hallucinations: None Delusions: Not Present Thought Process: Rumination Thought Content: positive for Perseveration Judgement: Fair Diagnostics Vital Signs (24Hr): Vital Signs - 24 hr 01/04/24 20:00 01/05/24 08:00 Temperature 98.1 F 98.2 F Pulse Rate 78 62 Respiratory Rate 18 18 Blood Pressure 144/65 H 120/72 Pulse Oximetry 99 98 Oxygen Delivery Method Room Air Room Air BMI result Body Mass Index 14.2 Labs 12/30/23 14:25 12/30/23 14:24 Imaging Radiology Impressions: ITS Impressions Chest X-Ray 01/03/24 15:40 IMPRESSION: No acute pulmonary disease. Electronically signed by: Leander Farias MD 01/04/2024 08:40 AM EDT RP Medications Medications Current Medications Acetaminophen (Acetaminophen 325 Mg Tablet) 650 mg PO Q6H PRN PRN Reason: Headache/Pain Mild Scale (1-3) Al Hydroxide/Mg Hydroxide (Magnesium Hydrox/Alum Hydrox 30 Ml Oral.Susp) 30 ml PO Q6H PRN PRN Reason: Heartburn/Nausea Bupropion HCl (Bupropion Hcl Xl 300 Mg Tab.Er.24h) 300 mg PO DAILY [facility] Last Admin: 01/05/24 08:44 Dose: 300 mg Clonidine HCl (Clonidine Hcl 0.1 Mg Tablet) 0.1 mg PO Q4H PRN; Protocol PRN Reason: anxiety/insomnia Last Admin: 01/03/24 21:57 Dose: 0.1 mg Clonidine HCl (Clonidine Hcl 0.1 Mg Tablet) 0.1 mg PO BEDTIME [facility]; Protocol Last Admin: 01/04/24 22:03 Dose: 0.1 mg Hydroxyzine HCl (Hydroxyzine Hcl 50 Mg Tablet) 50 mg PO Q6H PRN PRN Reason: Anxiety Last Admin: 01/04/24 21:58 Dose: 50 mg Magnesium Hydroxide (Milk Of Magnesia 30 Ml Oral.Susp) 30 ml PO DAILY PRN PRN Reason: Constipation Last Admin: 01/03/24 09:39 Dose: 30 ml Methadone HCl (Methadone Hcl 20 Mg/2 Ml Oral.Conc) 60 mg PO DAILY [facility] Last Admin: 01/05/24 07:49 Dose: 60 mg Nicotine (Nicotine 21 Mg Patch.Td24) 21 mg TRANSDERMA DAILY PRN PRN Reason: smoking cessation Nicotine Polacrilex (Nicotine Polacrilex 2 Mg Gum) 4 mg BUCCAL Q2H PRN PRN Reason: Nicotine Cravings Polyethylene Glycol (Polyethylene Glycol 3350 17 Gm Powd.Pack) 17 gm PO DAILY PRN PRN Reason: Constipation Allergies Allergies Allergy/AdvReac Type Severity Reaction Status Date / Time seafood Allergy Severe anaphylaxis Uncoded 12/30/23 14:02 SEAFOOD Allergy Unknown SWELLING Uncoded 12/30/23 14:02 Assessment & Plan Assessment & Plan (1) MDD (major depressive disorder), recurrent severe, without psychosis: Status: Acute Code(s): F33.2 - Major depressive disorder, recurrent severe without psychotic features (2) PTSD (post-traumatic stress disorder): Status: Acute Code(s): F43.10 - Post-traumatic stress disorder, unspecified (3) Cocaine use disorder: Status: Acute Code(s): F14.10 - Cocaine abuse, uncomplicated (4) Opioid use disorder: Status: Acute Code(s): F11.90 - Opioid use, unspecified, uncomplicated Plan Pt is a 53 male with PMH depression, PtSD, cocaine/heroin abuse, no methadone, who presents for worsening depression, SI resulting in suicide attempt by overdose. Patient reports he has been on and off depressed for years. This summer his depression worsened when he was worried about eviction and then worried about his Section 8 housing welfare being canceled. This stress added on to chronic moderate depression triggered him to relapse on daily crack/heroin and patient further isolated himself from his family and sunk into a deeper depression and endorses, diminished interest, excessive guilt, low energy, poor concentration, poor appetite with significant weight loss, trouble sleeping and SI. During the summer he was started on low dose of Wellbutrin but did not take it for more than a few weeks which he regrets. This past week patient, embroiled in substance abuse, depression, frustration, while at a friend's house he saw a bottle of pills and in front of his friend, grabbed it and swallowed them in an impulsive suicide attempt. His friend made him vomited up and brought him to the hospital. Patient denies any history of manic type symptoms or behavior; denies any AVH; denies any history of suicide attempts prior to this. Every few months relapses with cocaine/heroin abuse; denies other drugs including alcohol abuse. Formulation/clinical reason: Years of depression and untreated trauma; no therapy and no real medication trials. Patient agrees to restart Wellbutrin sits he tolerated it and it helped him to quit smoke cigarettes. Discussing treatment for substance abuse; patient was sober on Vivitrol and wished to his back on it. Currently on methadone Hospital course: 01/03 Patient remains depressed however he says it was helpful to go to groups. Some trouble sleeping but clonidine helped; struggling with excessive self- deprecating thoughts and guilt. Agrees to increase Wellbutrin to 300 mg -reviewed labs, x-ray with patient 01/04 Continue treatment Continues with depressive sx, however, finding supports helpful. Plan: CV Q 15 minute checks Increase to Wellbutrin XL 300 mg Clonidine p.r.n. Methadone 60 mg Ordered chest x-ray which was unremarkable; patient thinks weight loss was most likely attributed to low appetite due to depression however it was a significant amount, 60+ lb and patient is a chronic heavy smoker; denies ever sharing needles XR/XR chest 2V IMPRESSION: No acute pulmonary disease. Patient educated on: therapeutic strategies Reason for continued inpatient stay Substantial Risk for: rapid decompensation Time Spent With Patient Time: Total time managing care of this patient today ____ minutes.
[2024-01-05 20:00] VITALS: BP 111/68; PULSE 70; TEMP 36.4; O2SAT 98
[2024-01-05] MEDS: hydrOXYzine HCL 50 MG TABLET PO (21:56)
[2024-01-05 21:57] VITALS: BP 111/68
[2024-01-05] MEDS: cloNIDine HCL 0.1 MG TABLET PO (21:57)
[2024-01-06 08:00] VITALS: BP 135/79; PULSE 60; RESP 18; TEMP 36.8; O2SAT 98
[2024-01-06] MEDS: methADONE HCl 20 MG/2 ML ORAL.CONC 60 MG PO (08:06)
[2024-01-06] MEDS: buPROPion HCl XL 300 MG TAB.ER.24H PO (08:55)
--- NOTE | 2024-01-06 09:57 | P.PNPSI_ITS ---
Subjective Subjective Date of Service: 01/06/24 Reason For Visit: depression/SI Interim History: met with patient; discussed with team depressed still, no appetite and forcing self to eat; says óscar is helping, being around people, talking about his problems. Continued insomnia. Discussed meds, risks/side-effects and he agrees to adding MIrtazapine for continued depression as well as insomnia, low appetite Mental Status Exam Mental Status Exam Narrative: Pt is alert and oriented; behavior is slow moving but cooperative, friendly and calm; patient is not in distress; dressed in casual attire, very thin, scruffy facial hair; mood is described as down and affect congruent, downcast; eye contact limited; Speech slowed and soft volume; normal prosody; psychomotor retardation present; thought process is organized and goal directed; Thought content is on depression, excessive guilt, of son, tx; otherwise pertinent to relevant topics and without any delusional content, paranoid ideations or grandiosity; denies any SI/HI. Denies AVH; there is no evidence of perceptual disturbance. Patients insight and judgment impaired. Diagnostics Vital Signs (24Hr): Vital Signs - 24 hr 01/05/24 20:00 01/05/24 21:57 01/06/24 08:00 Temperature 97.5 F 98.2 F Pulse Rate 70 60 Respiratory Rate 18 Blood Pressure 111/68 111/68 135/79 Pulse Oximetry 98 98 Oxygen Delivery Method Room Air Room Air BMI result Body Mass Index 15.3 Labs 12/30/23 14:25 12/30/23 14:24 Imaging Radiology Impressions: ITS Impressions Chest X-Ray 01/03/24 15:40 IMPRESSION: No acute pulmonary disease. Electronically signed by: Leander Farias MD 01/04/2024 08:40 AM EDT Medications Medications Current Medications Acetaminophen (Acetaminophen 325 Mg Tablet) 650 mg PO Q6H PRN PRN Reason: Headache/Pain Mild Scale (1-3) Al Hydroxide/Mg Hydroxide (Magnesium Hydrox/Alum Hydrox 30 Ml Oral.Susp) 30 ml PO Q6H PRN PRN Reason: Heartburn/Nausea Bupropion HCl (Bupropion Hcl Xl 300 Mg Tab.Er.24h) 300 mg PO DAILY SARAH Last Admin: 01/06/24 08:55 Dose: 300 mg Clonidine HCl (Clonidine Hcl 0.1 Mg Tablet) 0.1 mg PO Q4H PRN; Protocol PRN Reason: anxiety/insomnia Last Admin: 01/03/24 21:57 Dose: 0.1 mg Clonidine HCl (Clonidine Hcl 0.1 Mg Tablet) 0.1 mg PO BEDTIME SARAH; Protocol Last Admin: 01/05/24 21:57 Dose: 0.1 mg Hydroxyzine HCl (Hydroxyzine Hcl 50 Mg Tablet) 50 mg PO Q6H PRN PRN Reason: Anxiety Last Admin: 01/05/24 21:56 Dose: 50 mg Magnesium Hydroxide (Milk Of Magnesia 30 Ml Oral.Susp) 30 ml PO DAILY PRN PRN Reason: Constipation Last Admin: 01/03/24 09:39 Dose: 30 ml Methadone HCl (Methadone Hcl 20 Mg/2 Ml Oral.Conc) 60 mg PO DAILY SARAH Last Admin: 01/06/24 08:06 Dose: 60 mg Nicotine (Nicotine 21 Mg Patch.Td24) 21 mg TRANSDERMA DAILY PRN PRN Reason: smoking cessation Nicotine Polacrilex (Nicotine Polacrilex 2 Mg Gum) 4 mg BUCCAL Q2H PRN PRN Reason: Nicotine Cravings Polyethylene Glycol (Polyethylene Glycol 3350 17 Gm Powd.Pack) 17 gm PO DAILY PRN PRN Reason: Constipation Allergies Allergies Allergy/AdvReac Type Severity Reaction Status Date / Time seafood Allergy Severe anaphylaxis Uncoded 12/30/23 14:02 SEAFOOD Allergy Unknown SWELLING Uncoded 12/30/23 14:02 Assessment & Plan Assessment & Plan (1) MDD (major depressive disorder), recurrent severe, without psychosis: Status: Acute Code(s): F33.2 - Major depressive disorder, recurrent severe without psychotic features (2) PTSD (post-traumatic stress disorder): Status: Acute Code(s): F43.10 - Post-traumatic stress disorder, unspecified (3) Cocaine use disorder: Status: Acute Code(s): F14.10 - Cocaine abuse, uncomplicated (4) Opioid use disorder: Status: Acute Code(s): F11.90 - Opioid use, unspecified, uncomplicated Plan Pt is a 53 male with PMH depression, PtSD, cocaine/heroin abuse, no methadone, who presents for worsening depression, SI resulting in suicide attempt by overdose. Patient reports he has been on and off depressed for years. This summer his depression worsened when he was worried about eviction and then worried about his [employer] 8 housing welfare being canceled. This stress added on to chronic moderate depression triggered him to relapse on daily crack/heroin and patient further isolated himself from his family and sunk into a deeper depression and endorses, diminished interest, excessive guilt, low energy, poor concentration, poor appetite with significant weight loss, trouble sleeping and SI. During the summer he was started on low dose of Wellbutrin but did not take it for more than a few weeks which he regrets. This past week patient, embroiled in substance abuse, depression, frustration, while at a friend's house he saw a bottle of pills and in front of his friend, grabbed it and swallowed them in an impulsive suicide attempt. His friend made him vomited up and brought him to the hospital. Patient denies any history of manic type symptoms or behavior; denies any AVH; denies any history of suicide attempts prior to this. Every few months relapses with cocaine/heroin abuse; denies other drugs including alcohol abuse. Formulation/clinical reason: Years of depression and untreated trauma; no therapy and no real medication trials. Patient agrees to restart Wellbutrin sits he tolerated it and it helped him to quit smoke cigarettes. Discussing treatment for substance abuse; patient was sober on Vivitrol and wished to his back on it. Currently on methadone Hospital course: 01/03 Patient remains depressed however he says it was helpful to go to groups. Some trouble sleeping but clonidine helped; struggling with excessive self- deprecating thoughts and guilt. Agrees to increase Wellbutrin to 300 mg -reviewed labs, x-ray with patient 01/05 depressed still, no appetite and forcing self to eat; says óscar is helping, being around people, talking about his problems. Continued insomnia. Discussed meds, risks/side-effects and he agrees to adding MIrtazapine for continued depression as well as insomnia, low appetite Plan: CV Q 15 minute checks continue Wellbutrin XL 300 mg start Mirtazapine 7.5mg for depression and insomnia/low appetite Clonidine p.r.n. Methadone 60 mg Ordered chest x-ray which was unremarkable; patient thinks weight loss was most likely attributed to low appetite due to depression however it was a significant amount, 60+ lb and patient is a chronic heavy smoker; denies ever sharing needles XR/XR chest 2V IMPRESSION: No acute pulmonary disease. Patient educated on: diagnosis, medication risk/benefits and substance abuse Informed Consent: understands Reason for continued inpatient stay Substantial Risk for: rapid decompensation Time Spent With Patient Time: Total time managing care of this patient today ____ minutes.
[2024-01-06 19:55] VITALS: BP 136/74; PULSE 83; RESP 15; TEMP 36.4; O2SAT 98
[2024-01-06] MEDS: hydrOXYzine HCL 50 MG TABLET PO (21:17)
[2024-01-06] MEDS: Mirtazapine 7.5 MG TABLET PO (21:17)
[2024-01-06] MEDS: cloNIDine HCL 0.1 MG TABLET PO (21:17)
[2024-01-07 08:00] VITALS: BP 153/77; PULSE 69; RESP 18; TEMP 36.9; O2SAT 100
[2024-01-07] MEDS: methADONE HCl 20 MG/2 ML ORAL.CONC 60 MG PO (08:04)
[2024-01-07] MEDS: buPROPion HCl XL 300 MG TAB.ER.24H PO (08:50)
--- NOTE | 2024-01-07 15:23 | P.PNPSI_ITS ---
Subjective Subjective Date of Service: 01/07/24 Reason For Visit: depression/SI Interim History: Maxi reports he is doing pretty good today. I am feeling good, I am singing, I am talking, I feel happy. He says he slept 7 hours but woke up early. He denies any SI/HI/AVH. Review of Systems Review of Systems As per HPI. Yes all other systems are reviewed and are negative Constitutional: Reports as per HPI Mental Status Exam Mental Status Exam Narrative: Pt is alert and oriented; behavior is slow moving but cooperative, friendly and calm; patient is not in distress; dressed in casual attire, very thin, scruffy facial hair; mood is described as down and affect congruent, downcast; eye contact limited; Speech slowed and soft volume; normal prosody; psychomotor retardation present; thought process is organized and goal directed; Thought content is on depression, excessive guilt, of son, tx; otherwise pertinent to relevant topics and without any delusional content, paranoid ideations or grandiosity; denies any SI/HI. Denies AVH; there is no evidence of perceptual disturbance. Patients insight and judgment impaired. Patient Appearance: Fatigued Patient Orientation: Person, Place, Time and Situation Level of Consciousness: Alert Patient Behavior: Talkative, Cooperative and Good Eye Contact Mood Description: Depressed Affect Description: Flat Patient Cognition Impaired: No Ability to Follow Directions: Good Speech Pattern: Spontaneous Speech Memory Description: Intact Diagnostics Vital Signs (24Hr): Vital Signs - 24 hr 01/06/24 19:55 01/07/24 08:00 Temperature 97.6 F 98.4 F Pulse Rate 83 69 Respiratory Rate 15 18 Blood Pressure 136/74 153/77 H Pulse Oximetry 98 100 Oxygen Delivery Method Room Air BMI result Body Mass Index 15.3 Labs 12/30/23 14:25 12/30/23 14:24 Imaging Radiology Impressions: ITS Impressions Chest X-Ray 01/03/24 15:40 IMPRESSION: No acute pulmonary disease. Electronically signed by: Leander Farias MD 01/04/2024 08:40 AM EDT Medications Medications Current Medications Acetaminophen (Acetaminophen 325 Mg Tablet) 650 mg PO Q6H PRN PRN Reason: Headache/Pain Mild Scale (1-3) Al Hydroxide/Mg Hydroxide (Magnesium Hydrox/Alum Hydrox 30 Ml Oral.Susp) 30 ml PO Q6H PRN PRN Reason: Heartburn/Nausea Bupropion HCl (Bupropion Hcl Xl 300 Mg Tab.Er.24h) 300 mg PO DAILY SARAH Last Admin: 01/07/24 08:50 Dose: 300 mg Clonidine HCl (Clonidine Hcl 0.1 Mg Tablet) 0.1 mg PO Q4H PRN; Protocol PRN Reason: anxiety/insomnia Last Admin: 01/03/24 21:57 Dose: 0.1 mg Clonidine HCl (Clonidine Hcl 0.1 Mg Tablet) 0.1 mg PO BEDTIME SARAH; Protocol Last Admin: 01/06/24 21:17 Dose: 0.1 mg Hydroxyzine HCl (Hydroxyzine Hcl 50 Mg Tablet) 50 mg PO Q6H PRN PRN Reason: Anxiety Last Admin: 01/06/24 21:17 Dose: 50 mg Magnesium Hydroxide (Milk Of Magnesia 30 Ml Oral.Susp) 30 ml PO DAILY PRN PRN Reason: Constipation Last Admin: 01/03/24 09:39 Dose: 30 ml Methadone HCl (Methadone Hcl 20 Mg/2 Ml Oral.Conc) 60 mg PO DAILY SARAH Last Admin: 01/07/24 08:04 Dose: 60 mg Mirtazapine (Mirtazapine 7.5 Mg Tablet) 7.5 mg PO BEDTIME SARAH Last Admin: 01/06/24 21:17 Dose: 7.5 mg Nicotine (Nicotine 21 Mg Patch.Td24) 21 mg TRANSDERMA DAILY PRN PRN Reason: smoking cessation Nicotine Polacrilex (Nicotine Polacrilex 2 Mg Gum) 4 mg BUCCAL Q2H PRN PRN Reason: Nicotine Cravings Polyethylene Glycol (Polyethylene Glycol 3350 17 Gm Powd.Pack) 17 gm PO DAILY PRN PRN Reason: Constipation Allergies Allergies Allergy/AdvReac Type Severity Reaction Status Date / Time seafood Allergy Severe anaphylaxis Uncoded 12/30/23 14:02 SEAFOOD Allergy Unknown SWELLING Uncoded 12/30/23 14:02 Assessment & Plan Assessment & Plan (1) MDD (major depressive disorder), recurrent severe, without psychosis: Status: Acute Code(s): F33.2 - Major depressive disorder, recurrent severe without psychotic features (2) PTSD (post-traumatic stress disorder): Status: Acute Code(s): F43.10 - Post-traumatic stress disorder, unspecified (3) Cocaine use disorder: Status: Acute Code(s): F14.10 - Cocaine abuse, uncomplicated (4) Opioid use disorder: Status: Acute Code(s): F11.90 - Opioid use, unspecified, uncomplicated Plan Pt is a 53 male with PMH depression, PtSD, cocaine/heroin abuse, no methadone, who presents for worsening depression, SI resulting in suicide attempt by overdose. Patient reports he has been on and off depressed for years. This summer his depression worsened when he was worried about eviction and then worried about his [employer] housing welfare being canceled. This stress added on to chronic moderate depression triggered him to relapse on daily crack/heroin and patient further isolated himself from his family and sunk into a deeper depression and endorses, diminished interest, excessive guilt, low energy, poor concentration, poor appetite with significant weight loss, trouble sleeping and SI. During the summer he was started on low dose of Wellbutrin but did not take it for more than a few weeks which he regrets. This past week patient, embroiled in substance abuse, depression, frustration, while at a friend's house he saw a bottle of pills and in front of his friend, grabbed it and swallowed them in an impulsive suicide attempt. His friend made him vomited up and brought him to the hospital. Patient denies any history of manic type symptoms or behavior; denies any AVH; denies any history of suicide attempts prior to this. Every few months relapses with cocaine/heroin abuse; denies other drugs including alcohol abuse. Formulation/clinical reason: Years of depression and untreated trauma; no therapy and no real medication trials. Patient agrees to restart Wellbutrin sits he tolerated it and it helped him to quit smoke cigarettes. Discussing treatment for substance abuse; patient was sober on Vivitrol and wished to his back on it. Currently on methadone Hospital course: 01/03 Patient remains depressed however he says it was helpful to go to groups. Some trouble sleeping but clonidine helped; struggling with excessive self- deprecating thoughts and guilt. Agrees to increase Wellbutrin to 300 mg -reviewed labs, x-ray with patient 01/04 Continue treatment Continues with depressive sx, however, finding supports helpful. 01/06: Continue current management and treatment plan. Plan: CV Q 15 minute checks Increase to Wellbutrin XL 300 mg Clonidine p.r.n. Methadone 60 mg Ordered chest x-ray which was unremarkable; patient thinks weight loss was most likely attributed to low appetite due to depression however it was a significant amount, 60+ lb and patient is a chronic heavy smoker; denies ever sharing needles XR/XR chest 2V IMPRESSION: No acute pulmonary disease. Reason for continued inpatient stay Substantial Risk for: harm to self and rapid decompensation Time Spent With Patient Time: Total time managing care of this patient today ____ minutes.
[2024-01-07 20:00] VITALS: BP 146/67; PULSE 75; RESP 14; TEMP 36.4; O2SAT 95
[2024-01-07] MEDS: Mirtazapine 7.5 MG TABLET PO (21:45)
[2024-01-07] MEDS: cloNIDine HCL 0.1 MG TABLET PO (21:45)
[2024-01-07] MEDS: hydrOXYzine HCL 50 MG TABLET PO (21:47)
[2024-01-08] MEDS: methADONE HCl 20 MG/2 ML ORAL.CONC 60 MG PO (07:45)
[2024-01-08 08:42] VITALS: BP 150/84; PULSE 68; RESP 17; TEMP 36.8; O2SAT 99
[2024-01-08] MEDS: buPROPion HCl XL 300 MG TAB.ER.24H PO (08:57)
--- NOTE | 2024-01-08 09:51 | P.PNPSI_ITS ---
Subjective Subjective Date of Service: 01/08/24 Reason For Visit: depression/SI Interim History: Maxi continues to report ongoing improvement in his mood and anxiety since admission. He reports he is doing pretty good. Unsure if he is ready to leave I still had some plans first. He says he slept well but woke up early. He denies any SI/HI/AVH. Review of Systems Review of Systems As per HPI. Yes all other systems are reviewed and are negative Constitutional: Reports as per HPI Mental Status Exam Mental Status Exam Narrative: Pt is alert and oriented; behavior is slow moving but cooperative, friendly and calm; patient is not in distress; dressed in casual attire, very thin, scruffy facial hair; mood is described as down and affect congruent, downcast; eye contact limited; Speech slowed and soft volume; normal prosody; psychomotor retardation present; thought process is organized and goal directed; Thought content is on depression, excessive guilt, of son, tx; otherwise pertinent to relevant topics and without any delusional content, paranoid ideations or grandiosity; denies any SI/HI. Denies AVH; there is no evidence of perceptual disturbance. Patients insight and judgment impaired. Patient Appearance: Fatigued Patient Orientation: Person, Place, Time and Situation Level of Consciousness: Alert Patient Behavior: Talkative, Cooperative and Good Eye Contact Mood Description: Depressed Affect Description: Flat Patient Cognition Impaired: No Ability to Follow Directions: Good Speech Pattern: Spontaneous Speech Memory Description: Intact Diagnostics Vital Signs (24Hr): Vital Signs - 24 hr 01/07/24 20:00 01/08/24 08:42 Temperature 97.6 F 98.3 F Pulse Rate 75 68 Respiratory Rate 14 17 Blood Pressure 146/67 H 150/84 H Pulse Oximetry 95 99 Oxygen Delivery Method Room Air BMI result Body Mass Index 15.3 Labs 12/30/23 14:25 12/30/23 14:24 Imaging Radiology Impressions: ITS Impressions Chest X-Ray 01/03/24 15:40 IMPRESSION: No acute pulmonary disease. Electronically signed by: Leander Farias MD 01/04/2024 08:40 AM EDT Medications Medications Current Medications Acetaminophen (Acetaminophen 325 Mg Tablet) 650 mg PO Q6H PRN PRN Reason: Headache/Pain Mild Scale (1-3) Al Hydroxide/Mg Hydroxide (Magnesium Hydrox/Alum Hydrox 30 Ml Oral.Susp) 30 ml PO Q6H PRN PRN Reason: Heartburn/Nausea Bupropion HCl (Bupropion Hcl Xl 300 Mg Tab.Er.24h) 300 mg PO DAILY SARAH Last Admin: 01/08/24 08:57 Dose: 300 mg Clonidine HCl (Clonidine Hcl 0.1 Mg Tablet) 0.1 mg PO Q4H PRN; Protocol PRN Reason: anxiety/insomnia Last Admin: 01/03/24 21:57 Dose: 0.1 mg Clonidine HCl (Clonidine Hcl 0.1 Mg Tablet) 0.1 mg PO BEDTIME SARAH; Protocol Last Admin: 01/07/24 21:45 Dose: 0.1 mg Hydroxyzine HCl (Hydroxyzine Hcl 50 Mg Tablet) 50 mg PO Q6H PRN PRN Reason: Anxiety Last Admin: 01/07/24 21:47 Dose: 50 mg Magnesium Hydroxide (Milk Of Magnesia 30 Ml Oral.Susp) 30 ml PO DAILY PRN PRN Reason: Constipation Last Admin: 01/03/24 09:39 Dose: 30 ml Methadone HCl (Methadone Hcl 20 Mg/2 Ml Oral.Conc) 60 mg PO DAILY REPLACED BY [facility] Last Admin: 01/08/24 07:45 Dose: 60 mg Mirtazapine (Mirtazapine 7.5 Mg Tablet) 7.5 mg PO BEDTIME SARAH Last Admin: 01/07/24 21:45 Dose: 7.5 mg Nicotine (Nicotine 21 Mg Patch.Td24) 21 mg TRANSDERMA DAILY PRN PRN Reason: smoking cessation Nicotine Polacrilex (Nicotine Polacrilex 2 Mg Gum) 4 mg BUCCAL Q2H PRN PRN Reason: Nicotine Cravings Polyethylene Glycol (Polyethylene Glycol 3350 17 Gm Powd.Pack) 17 gm PO DAILY PRN PRN Reason: Constipation Allergies Allergies Allergy/AdvReac Type Severity Reaction Status Date / Time seafood Allergy Severe anaphylaxis Uncoded 12/30/23 14:02 SEAFOOD Allergy Unknown SWELLING Uncoded 12/30/23 14:02 Assessment & Plan Assessment & Plan (1) MDD (major depressive disorder), recurrent severe, without psychosis: Status: Acute Code(s): F33.2 - Major depressive disorder, recurrent severe without psychotic features (2) PTSD (post-traumatic stress disorder): Status: Acute Code(s): F43.10 - Post-traumatic stress disorder, unspecified (3) Cocaine use disorder: Status: Acute Code(s): F14.10 - Cocaine abuse, uncomplicated (4) Opioid use disorder: Status: Acute Code(s): F11.90 - Opioid use, unspecified, uncomplicated Plan Pt is a 53 male with PMH depression, PtSD, cocaine/heroin abuse, no methadone, who presents for worsening depression, SI resulting in suicide attempt by overdose. Patient reports he has been on and off depressed for years. This summer his depression worsened when he was worried about eviction and then worried about his [employer] 8 housing welfare being canceled. This stress added on to chronic moderate depression triggered him to relapse on daily crack/heroin and patient further isolated himself from his family and sunk into a deeper depression and endorses, diminished interest, excessive guilt, low energy, poor concentration, poor appetite with significant weight loss, trouble sleeping and SI. During the summer he was started on low dose of Wellbutrin but did not take it for more than a few weeks which he regrets. This past week patient, embroiled in substance abuse, depression, frustration, while at a friend's house he saw a bottle of pills and in front of his friend, grabbed it and swallowed them in an impulsive suicide attempt. His friend made him vomited up and brought him to the hospital. Patient denies any history of manic type symptoms or behavior; denies any AVH; denies any history of suicide attempts prior to this. Every few months relapses with cocaine/heroin abuse; denies other drugs including alcohol abuse. Formulation/clinical reason: Years of depression and untreated trauma; no therapy and no real medication trials. Patient agrees to restart Wellbutrin sits he tolerated it and it helped him to quit smoke cigarettes. Discussing treatment for substance abuse; patient was sober on Vivitrol and wished to his back on it. Currently on methadone Hospital course: 01/03 Patient remains depressed however he says it was helpful to go to groups. Some trouble sleeping but clonidine helped; struggling with excessive self- deprecating thoughts and guilt. Agrees to increase Wellbutrin to 300 mg -reviewed labs, x-ray with patient 01/04 Continue treatment Continues with depressive sx, however, finding supports helpful. 01/06: Continue current management and treatment plan. 01/07: Continue current management and treatment plan. Plan: CV Q 15 minute checks Increase to Wellbutrin XL 300 mg Clonidine p.r.n. Methadone 60 mg Ordered chest x-ray which was unremarkable; patient thinks weight loss was most likely attributed to low appetite due to depression however it was a significant amount, 60+ lb and patient is a chronic heavy smoker; denies ever sharing needles XR/XR chest 2V IMPRESSION: No acute pulmonary disease. Reason for continued inpatient stay Substantial Risk for: harm to self and rapid decompensation Time Spent With Patient Time: Total time managing care of this patient today ____ minutes.
[2024-01-08 19:56] VITALS: BP 142/65; PULSE 78; RESP 16; TEMP 36.8; O2SAT 99
[2024-01-08] MEDS: Mirtazapine 7.5 MG TABLET PO (22:30)
[2024-01-08] MEDS: cloNIDine HCL 0.1 MG TABLET PO (22:30)
[2024-01-08] MEDS: hydrOXYzine HCL 50 MG TABLET PO (22:31)
[2024-01-09] MEDS: methADONE HCl 20 MG/2 ML ORAL.CONC 60 MG PO (07:51)
[2024-01-09 08:00] VITALS: BP 158/90; PULSE 87; RESP 17; TEMP 36.7; O2SAT 95
[2024-01-09] MEDS: buPROPion HCl XL 300 MG TAB.ER.24H PO (09:00)
--- NOTE | 2024-01-09 10:04 | P.PNPSI_ITS ---
Subjective Subjective Date of Service: 01/09/24 Reason For Visit: depression/SI Interim History: Patient seen 01/08; discussed with team; reviewed chart Patient reports feeling much better and says his mood is good; says his anxiety is not bad and finds his appetite coming back. Patient has gained weight as well He is sleeping better though still has insomnia but appreciates added medication of mirtazapine. Discussed dispo planning Mental Status Exam Mental Status Exam Narrative: Pt is alert and oriented; behavior is cooperative, friendly and calm; patient is not in distress; dressed in casual attire with unkempt facial hair but adequate hygiene; mood is described as good and affect congruent; eye contact appropriate; Speech is normal rate, volume and prosody and not pressured; no psychomotor agitation/retardation present; thought process is organized and goal directed; Thought content is on tx; otherwise pertinent to relevant topics and without any delusional content, paranoid ideations or grandiosity; denies any SI/HI. There is no evidence of perceptual disturbance. Patients insight and judgment appear intact. Diagnostics Vital Signs (24Hr): Vital Signs - 24 hr 01/08/24 19:56 01/09/24 08:00 Temperature 98.3 F 98.0 F Pulse Rate 78 87 Respiratory Rate 16 17 Blood Pressure 142/65 H 158/90 H Pulse Oximetry 99 95 Oxygen Delivery Method Room Air BMI result Body Mass Index 15.3 Labs 12/30/23 14:25 12/30/23 14:24 Imaging Radiology Impressions: ITS Impressions Chest X-Ray 01/03/24 15:40 IMPRESSION: No acute pulmonary disease. Electronically signed by: Leander Farias MD 01/04/2024 08:40 AM EDT Medications Medications Current Medications Acetaminophen (Acetaminophen 325 Mg Tablet) 650 mg PO Q6H PRN PRN Reason: Headache/Pain Mild Scale (1-3) Al Hydroxide/Mg Hydroxide (Magnesium Hydrox/Alum Hydrox 30 Ml Oral.Susp) 30 ml PO Q6H PRN PRN Reason: Heartburn/Nausea Bupropion HCl (Bupropion Hcl Xl 300 Mg Tab.Er.24h) 300 mg PO DAILY SARAH Last Admin: 01/09/24 09:00 Dose: 300 mg Clonidine HCl (Clonidine Hcl 0.1 Mg Tablet) 0.1 mg PO Q4H PRN; Protocol PRN Reason: anxiety/insomnia Last Admin: 01/03/24 21:57 Dose: 0.1 mg Clonidine HCl (Clonidine Hcl 0.1 Mg Tablet) 0.1 mg PO BEDTIME SARAH; Protocol Last Admin: 01/08/24 22:30 Dose: 0.1 mg Hydroxyzine HCl (Hydroxyzine Hcl 50 Mg Tablet) 50 mg PO Q6H PRN PRN Reason: Anxiety Last Admin: 01/08/24 22:31 Dose: 50 mg Magnesium Hydroxide (Milk Of Magnesia 30 Ml Oral.Susp) 30 ml PO DAILY PRN PRN Reason: Constipation Last Admin: 01/03/24 09:39 Dose: 30 ml Methadone HCl (Methadone Hcl 20 Mg/2 Ml Oral.Conc) 60 mg PO DAILY SARAH Last Admin: 01/09/24 07:51 Dose: 60 mg Mirtazapine (Mirtazapine 7.5 Mg Tablet) 7.5 mg PO BEDTIME SARAH Last Admin: 01/08/24 22:30 Dose: 7.5 mg Nicotine (Nicotine 21 Mg Patch.Td24) 21 mg TRANSDERMA DAILY PRN PRN Reason: smoking cessation Nicotine Polacrilex (Nicotine Polacrilex 2 Mg Gum) 4 mg BUCCAL Q2H PRN PRN Reason: Nicotine Cravings Polyethylene Glycol (Polyethylene Glycol 3350 17 Gm Powd.Pack) 17 gm PO DAILY PRN PRN Reason: Constipation Allergies Allergies Allergy/AdvReac Type Severity Reaction Status Date / Time seafood Allergy Severe anaphylaxis Uncoded 12/30/23 14:02 SEAFOOD Allergy Unknown SWELLING Uncoded 12/30/23 14:02 Assessment & Plan Assessment & Plan (1) MDD (major depressive disorder), recurrent severe, without psychosis: Status: Acute Code(s): F33.2 - Major depressive disorder, recurrent severe without psychotic features (2) PTSD (post-traumatic stress disorder): Status: Acute Code(s): F43.10 - Post-traumatic stress disorder, unspecified (3) Cocaine use disorder: Status: Acute Code(s): F14.10 - Cocaine abuse, uncomplicated (4) Opioid use disorder: Status: Acute Code(s): F11.90 - Opioid use, unspecified, uncomplicated Plan Pt is a 53 male with PMH depression, PtSD, cocaine/heroin abuse, no methadone, who presents for worsening depression, SI resulting in suicide attempt by overdose. Patient reports he has been on and off depressed for years. This summer his depression worsened when he was worried about eviction and then worried about his [employer] housing welfare being canceled. This stress added on to chronic moderate depression triggered him to relapse on daily crack/heroin and patient further isolated himself from his family and sunk into a deeper depression and endorses, diminished interest, excessive guilt, low energy, poor concentration, poor appetite with significant weight loss, trouble sleeping and SI. During the summer he was started on low dose of Wellbutrin but did not take it for more than a few weeks which he regrets. This past week patient, embroiled in substance abuse, depression, frustration, while at a friend's house he saw a bottle of pills and in front of his friend, grabbed it and swallowed them in an impulsive suicide attempt. His friend made him vomited up and brought him to the hospital. Patient denies any history of manic type symptoms or behavior; denies any AVH; denies any history of suicide attempts prior to this. Every few months relapses with cocaine/heroin abuse; denies other drugs including alcohol abuse. Formulation/clinical reason: Years of depression and untreated trauma; no therapy and no real medication trials. Patient agrees to restart Wellbutrin sits he tolerated it and it helped him to quit smoke cigarettes. Discussing treatment for substance abuse; patient was sober on Vivitrol and wished to his back on it. Currently on methadone Hospital course: 01/03 Patient remains depressed however he says it was helpful to go to groups. Some trouble sleeping but clonidine helped; struggling with excessive self- deprecating thoughts and guilt. Agrees to increase Wellbutrin to 300 mg -reviewed labs, x-ray with patient 01/05 depressed still, no appetite and forcing self to eat; says óscar is helping, being around people, talking about his problems. Continued insomnia. Discussed meds, risks/side-effects and he agrees to adding MIrtazapine for continued depression as well as insomnia, low appetite 01/08 much improved, depression gone, anxiety under control; patient eating more as well. Feels medications are helpful and wants to continue. Optimistic Plan: CV Q 15 minute checks continue Wellbutrin XL 300 mg Mirtazapine 7.5mg for depression and insomnia/low appetite Clonidine p.r.n. Methadone 60 mg Ordered chest x-ray which was unremarkable; patient thinks weight loss was most likely attributed to low appetite due to depression however it was a significant amount, 60+ lb and patient is a chronic heavy smoker; denies ever sharing needles XR/XR chest 2V IMPRESSION: No acute pulmonary disease. Patient educated on: diagnosis, medication risk/benefits, substance abuse and therapeutic strategies Informed Consent: understands Reason for continued inpatient stay Substantial Risk for: stable for discharge Time Spent With Patient Time: Total time managing care of this patient today ____ minutes.
[2024-01-09 20:00] VITALS: BP 132/87; PULSE 80; RESP 18; TEMP 36.4; O2SAT 93
[2024-01-09] MEDS: hydrOXYzine HCL 50 MG TABLET PO (22:21)
[2024-01-09] MEDS: cloNIDine HCL 0.1 MG TABLET PO (22:21)
[2024-01-09] MEDS: Mirtazapine 7.5 MG TABLET PO (22:22)
[2024-01-10] MEDS: methADONE HCl 20 MG/2 ML ORAL.CONC 60 MG PO (07:43)
[2024-01-10 08:00] VITALS: BP 172/74; PULSE 71; RESP 16; TEMP 36.4; O2SAT 99
[2024-01-10] MEDS: buPROPion HCl XL 300 MG TAB.ER.24H PO (08:39)
--- NOTE | 2024-01-10 18:01 | P.PNPSI_ITS ---
Subjective Subjective Date of Service: 01/10/24 Reason For Visit: depression/SI Interim History: Met with patient; discussed with team remains in good mood, future oriented. Hoping to get into some kind of program but otherwise will discharge this . Discussed substance abuse and options of methadone verse Suboxone verse Vivitrol which patient will consider Mental Status Exam Mental Status Exam Narrative: Pt is alert and oriented; behavior is cooperative, friendly and calm; patient is not in distress; dressed in casual attire with unkempt facial hair but adequate hygiene; mood is described as good and affect congruent; eye contact appropriate; Speech is normal rate, volume and prosody and not pressured; no psychomotor agitation/retardation present; thought process is organized and goal directed; Thought content is on tx; otherwise pertinent to relevant topics and without any delusional content, paranoid ideations or grandiosity; denies any SI/HI. There is no evidence of perceptual disturbance. Patients insight and judgment are intact. Diagnostics Vital Signs (24Hr): Vital Signs - 24 hr 01/09/24 20:00 01/10/24 08:00 Temperature 97.5 F 97.5 F Pulse Rate 80 71 Respiratory Rate 18 16 Blood Pressure 132/87 172/74 H Pulse Oximetry 93 99 Oxygen Delivery Method Room Air Room Air BMI result Body Mass Index 15.3 Labs 12/30/23 14:25 12/30/23 14:24 Imaging Radiology Impressions: ITS Impressions Chest X-Ray 01/03/24 15:40 IMPRESSION: No acute pulmonary disease. Electronically signed by: Leander Farias MD 01/04/2024 08:40 AM EDT Medications Medications Current Medications Acetaminophen (Acetaminophen 325 Mg Tablet) 650 mg PO Q6H PRN PRN Reason: Headache/Pain Mild Scale (1-3) Al Hydroxide/Mg Hydroxide (Magnesium Hydrox/Alum Hydrox 30 Ml Oral.Susp) 30 ml PO Q6H PRN PRN Reason: Heartburn/Nausea Bupropion HCl (Bupropion Hcl Xl 300 Mg Tab.Er.24h) 300 mg PO DAILY SARAH Last Admin: 01/10/24 08:39 Dose: 300 mg Clonidine HCl (Clonidine Hcl 0.1 Mg Tablet) 0.1 mg PO Q4H PRN; Protocol PRN Reason: anxiety/insomnia Last Admin: 01/03/24 21:57 Dose: 0.1 mg Clonidine HCl (Clonidine Hcl 0.1 Mg Tablet) 0.1 mg PO BEDTIME SARAH; Protocol Last Admin: 01/09/24 22:21 Dose: 0.1 mg Hydroxyzine HCl (Hydroxyzine Hcl 50 Mg Tablet) 50 mg PO Q6H PRN PRN Reason: Anxiety Last Admin: 01/09/24 22:21 Dose: 50 mg Magnesium Hydroxide (Milk Of Magnesia 30 Ml Oral.Susp) 30 ml PO DAILY PRN PRN Reason: Constipation Last Admin: 01/03/24 09:39 Dose: 30 ml Methadone HCl (Methadone Hcl 20 Mg/2 Ml Oral.Conc) 60 mg PO DAILY SARAH Last Admin: 01/10/24 07:43 Dose: 60 mg Mirtazapine (Mirtazapine 7.5 Mg Tablet) 7.5 mg PO BEDTIME SARAH Last Admin: 01/09/24 22:22 Dose: 7.5 mg Nicotine (Nicotine 21 Mg Patch.Td24) 21 mg TRANSDERMA DAILY PRN PRN Reason: smoking cessation Nicotine Polacrilex (Nicotine Polacrilex 2 Mg Gum) 4 mg BUCCAL Q2H PRN PRN Reason: Nicotine Cravings Polyethylene Glycol (Polyethylene Glycol 3350 17 Gm Powd.Pack) 17 gm PO DAILY PRN PRN Reason: Constipation Allergies Allergies Allergy/AdvReac Type Severity Reaction Status Date / Time seafood Allergy Severe anaphylaxis Uncoded 12/30/23 14:02 SEAFOOD Allergy Unknown SWELLING Uncoded 12/30/23 14:02 Assessment & Plan Assessment & Plan (1) MDD (major depressive disorder), recurrent severe, without psychosis: Status: Acute Code(s): F33.2 - Major depressive disorder, recurrent severe without psychotic features (2) PTSD (post-traumatic stress disorder): Status: Acute Code(s): F43.10 - Post-traumatic stress disorder, unspecified (3) Cocaine use disorder: Status: Acute Code(s): F14.10 - Cocaine abuse, uncomplicated (4) Opioid use disorder: Status: Acute Code(s): F11.90 - Opioid use, unspecified, uncomplicated Plan Pt is a 53 male with PMH depression, PtSD, cocaine/heroin abuse, no methadone, who presents for worsening depression, SI resulting in suicide attempt by overdose. Patient reports he has been on and off depressed for years. This summer his depression worsened when he was worried about eviction and then worried about his [employer] 8 housing welfare being canceled. This stress added on to chronic moderate depression triggered him to relapse on daily crack/heroin and patient further isolated himself from his family and sunk into a deeper depression and endorses, diminished interest, excessive guilt, low energy, poor concentration, poor appetite with significant weight loss, trouble sleeping and SI. During the summer he was started on low dose of Wellbutrin but did not take it for more than a few weeks which he regrets. This past week patient, embroiled in substance abuse, depression, frustration, while at a friend's house he saw a bottle of pills and in front of his friend, grabbed it and swallowed them in an impulsive suicide attempt. His friend made him vomited up and brought him to the hospital. Patient denies any history of manic type symptoms or behavior; denies any AVH; denies any history of suicide attempts prior to this. Every few months relapses with cocaine/heroin abuse; denies other drugs including alcohol abuse. Formulation/clinical reason: Years of depression and untreated trauma; no therapy and no real medication trials. Patient agrees to restart Wellbutrin sits he tolerated it and it helped him to quit smoke cigarettes. Discussing treatment for substance abuse; patient was sober on Vivitrol and wished to his back on it. Currently on methadone Hospital course: 01/03 Patient remains depressed however he says it was helpful to go to groups. Some trouble sleeping but clonidine helped; struggling with excessive self- deprecating thoughts and guilt. Agrees to increase Wellbutrin to 300 mg -reviewed labs, x-ray with patient 01/05 depressed still, no appetite and forcing self to eat; says óscar is helping, being around people, talking about his problems. Continued insomnia. Discussed meds, risks/side-effects and he agrees to adding MIrtazapine for continued depression as well as insomnia, low appetite 01/08 much improved, depression gone, anxiety under control; patient eating more as well. Feels medications are helpful and wants to continue. Optimistic 01/09 continue treatment plan; patient trying to get into a program but will otherwise discharge home Plan: CV Q 15 minute checks continue Wellbutrin XL 300 mg Mirtazapine 7.5mg for depression and insomnia/low appetite Clonidine p.r.n. Methadone 60 mg Ordered chest x-ray which was unremarkable; patient thinks weight loss was most likely attributed to low appetite due to depression however it was a significant amount, 60+ lb and patient is a chronic heavy smoker; denies ever sharing needles XR/XR chest 2V IMPRESSION: No acute pulmonary disease. Patient educated on: diagnosis, medication risk/benefits and substance abuse Informed Consent: understands Reason for continued inpatient stay Substantial Risk for: stable for discharge Time Spent With Patient Time: Total time managing care of this patient today ____ minutes.
[2024-01-10 20:00] VITALS: BP 159/92; PULSE 83; RESP 16; TEMP 36.6; O2SAT 99
[2024-01-10] MEDS: Mirtazapine 7.5 MG TABLET PO (21:30)
[2024-01-10] MEDS: hydrOXYzine HCL 50 MG TABLET PO (21:31)
[2024-01-10] MEDS: cloNIDine HCL 0.1 MG TABLET PO (21:31)
[2024-01-11] MEDS: methADONE HCl 20 MG/2 ML ORAL.CONC 60 MG PO (07:41)
[2024-01-11] MEDS: buPROPion HCl XL 300 MG TAB.ER.24H PO (08:00)
[2024-01-11 08:35] VITALS: BP 137/84; PULSE 73; RESP 18; TEMP 36.9; O2SAT 98
--- NOTE | 2024-01-11 16:57 | HO.PSYCHPN ---
Subjective Subjective Date of Service: 01/11/24 Reason For Visit: depression/SI Interim History: Met with patient; discussed with team Patient continues to report that he is in a good mood and feels that medications have worked well; he is optimistic and looking forward to discharge tomorrow with plans to go to his apartment, which he says his outpatient workers have reassured him that it is very unlikely he will get evicted. Patient and internal communications writer again discussed substance abuse, sobriety and patient wants to remain on methadone; he has refused various programs for substance abuse and instead plans to continue working on his sobriety as an outpatient. Remains with insomnia but says overall sleeping much better. Weighed patient and he is now 49 kg Mental Status Exam Mental Status Exam Narrative: Pt is alert and oriented; behavior is cooperative, friendly and calm; patient is not in distress; dressed in casual attire with unkempt facial hair but adequate hygiene; mood is described as good and affect congruent; eye contact appropriate; Speech is normal rate, volume and prosody and not pressured; no psychomotor agitation/retardation present; thought process is organized and goal directed; Thought content is on tx; otherwise pertinent to relevant topics and without any delusional content, paranoid ideations or grandiosity; denies any SI/HI. There is no evidence of perceptual disturbance. Patients insight and judgment are intact. Diagnostics Vital Signs (24Hr): Vital Signs - 24 hr 01/10/24 20:00 01/11/24 08:35 Temperature 97.8 F 98.4 F Pulse Rate 83 73 Respiratory Rate 16 18 Blood Pressure 159/92 H 137/84 Pulse Oximetry 99 98 Oxygen Delivery Method Room Air Room Air BMI result Body Mass Index 15.3 Labs 12/30/23 14:25 12/30/23 14:24 Imaging Radiology Impressions: ITS Impressions Chest X-Ray 01/03/24 15:40 IMPRESSION: No acute pulmonary disease. Electronically signed by: Leander Farias MD 01/04/2024 08:40 AM EDT Medications Medications Current Medications Acetaminophen (Acetaminophen 325 Mg Tablet) 650 mg PO Q6H PRN PRN Reason: Headache/Pain Mild Scale (1-3) Al Hydroxide/Mg Hydroxide (Magnesium Hydrox/Alum Hydrox 30 Ml Oral.Susp) 30 ml PO Q6H PRN PRN Reason: Heartburn/Nausea Bupropion HCl (Bupropion Hcl Xl 300 Mg Tab.Er.24h) 300 mg PO DAILY SARAH Last Admin: 01/11/24 08:00 Dose: 300 mg Clonidine HCl (Clonidine Hcl 0.1 Mg Tablet) 0.1 mg PO Q4H PRN; Protocol PRN Reason: anxiety/insomnia Last Admin: 01/03/24 21:57 Dose: 0.1 mg Clonidine HCl (Clonidine Hcl 0.1 Mg Tablet) 0.1 mg PO BEDTIME SARAH; Protocol Last Admin: 01/10/24 21:31 Dose: 0.1 mg Hydroxyzine HCl (Hydroxyzine Hcl 50 Mg Tablet) 50 mg PO Q6H PRN PRN Reason: Anxiety Last Admin: 01/10/24 21:31 Dose: 50 mg Magnesium Hydroxide (Milk Of Magnesia 30 Ml Oral.Susp) 30 ml PO DAILY PRN PRN Reason: Constipation Last Admin: 01/03/24 09:39 Dose: 30 ml Methadone HCl (Methadone Hcl 20 Mg/2 Ml Oral.Conc) 60 mg PO DAILY SARAH Last Admin: 01/11/24 07:41 Dose: 60 mg Mirtazapine (Mirtazapine 7.5 Mg Tablet) 7.5 mg PO BEDTIME SARAH Last Admin: 01/10/24 21:30 Dose: 7.5 mg Nicotine (Nicotine 21 Mg Patch.Td24) 21 mg TRANSDERMA DAILY PRN PRN Reason: smoking cessation Nicotine Polacrilex (Nicotine Polacrilex 2 Mg Gum) 4 mg BUCCAL Q2H PRN PRN Reason: Nicotine Cravings Polyethylene Glycol (Polyethylene Glycol 3350 17 Gm Powd.Pack) 17 gm PO DAILY PRN PRN Reason: Constipation Allergies Allergies Allergy/AdvReac Type Severity Reaction Status Date / Time seafood Allergy Severe anaphylaxis Uncoded 12/30/23 14:02 SEAFOOD Allergy Unknown SWELLING Uncoded 12/30/23 14:02 Assessment & Plan Assessment & Plan (1) MDD (major depressive disorder), recurrent severe, without psychosis: Status: Acute Code(s): F33.2 - Major depressive disorder, recurrent severe without psychotic features (2) PTSD (post-traumatic stress disorder): Status: Acute Code(s): F43.10 - Post-traumatic stress disorder, unspecified (3) Cocaine use disorder: Status: Acute Code(s): F14.10 - Cocaine abuse, uncomplicated (4) Opioid use disorder: Status: Acute Code(s): F11.90 - Opioid use, unspecified, uncomplicated Plan Pt is a 53 male with PMH depression, PtSD, cocaine/heroin abuse, no methadone, who presents for worsening depression, SI resulting in suicide attempt by overdose. Patient reports he has been on and off depressed for years. This summer his depression worsened when he was worried about eviction and then worried about his [employer] 8 housing welfare being canceled. This stress added on to chronic moderate depression triggered him to relapse on daily crack/heroin and patient further isolated himself from his family and sunk into a deeper depression and endorses, diminished interest, excessive guilt, low energy, poor concentration, poor appetite with significant weight loss, trouble sleeping and SI. During the summer he was started on low dose of Wellbutrin but did not take it for more than a few weeks which he regrets. This past week patient, embroiled in substance abuse, depression, frustration, while at a friend's house he saw a bottle of pills and in front of his friend, grabbed it and swallowed them in an impulsive suicide attempt. His friend made him vomited up and brought him to the hospital. Patient denies any history of manic type symptoms or behavior; denies any AVH; denies any history of suicide attempts prior to this. Every few months relapses with cocaine/heroin abuse; denies other drugs including alcohol abuse. Formulation/clinical reason: Years of depression and untreated trauma; no therapy and no real medication trials. Patient agrees to restart Wellbutrin sits he tolerated it and it helped him to quit smoke cigarettes. Discussing treatment for substance abuse; patient was sober on Vivitrol and wished to his back on it. Currently on methadone Hospital course: 01/03 Patient remains depressed however he says it was helpful to go to groups. Some trouble sleeping but clonidine helped; struggling with excessive self-deprecating thoughts and guilt. Agrees to increase Wellbutrin to 300 mg -reviewed labs, x-ray with patient 01/05 depressed still, no appetite and forcing self to eat; says miljose is helping, being around people, talking about his problems. Continued insomnia. Discussed meds, risks/side-effects and he agrees to adding MIrtazapine for continued depression as well as insomnia, low appetite 01/08 much improved, depression gone, anxiety under control; patient eating more as well. Feels medications are helpful and wants to continue. Optimistic 01/09 continue treatment plan; patient trying to get into a program but will otherwise discharge home 01/10 Patient continues to report that he is in a good mood and feels that medications have worked well; he is optimistic and looking forward to discharge tomorrow with plans to go to his apartment, which he says his outpatient workers have reassured him that it is very unlikely he will get evicted. Patient and internal communications writer again discussed substance abuse, sobriety and patient wants to remain on methadone; he has refused various programs for substance abuse and instead plans to continue working on his sobriety as an outpatient. Remains with insomnia but says overall sleeping much better. Weighed patient and he is now 49 kg Patient is at baseline. He is in a good mood; depression, SI remain fully resolved. Patient feels his medications are helpful. He is optimistic and future oriented. Patient understands he will likely continue to struggle with cravings however he is hopeful about staying sober. Patient is not in imminent risk for harm to self or others appropriate to return to the community for treatment. Plan: CV Q 15 minute checks continue Wellbutrin XL 300 mg Mirtazapine 7.5mg for depression and insomnia/low appetite Clonidine p.r.n. Methadone 60 mg Ordered chest x-ray which was unremarkable; patient thinks weight loss was most likely attributed to low appetite due to depression however it was a significant amount, 60+ lb and patient is a chronic heavy smoker; denies ever sharing needles XR/XR chest 2V IMPRESSION: No acute pulmonary disease. Patient educated on: diagnosis, medication risk/benefits, substance abuse, therapeutic strategies and medical condition Informed Consent: understands Reason for continued inpatient stay Substantial Risk for: stable for discharge Time Spent With Patient Time: Total time managing care of this patient today ____ minutes.
[2024-01-11 22:00] VITALS: BP 132/65; PULSE 89; RESP 18; TEMP 36.3; O2SAT 97
[2024-01-11] MEDS: Mirtazapine 7.5 MG TABLET PO (22:27)
[2024-01-11] MEDS: hydrOXYzine HCL 50 MG TABLET PO (22:27)
[2024-01-11] MEDS: cloNIDine HCL 0.1 MG TABLET PO (22:27)
[2024-01-12 08:00] VITALS: BP 133/79; PULSE 85; RESP 18; TEMP 36.6; O2SAT 98
[2024-01-12] MEDS: methADONE HCl 20 MG/2 ML ORAL.CONC 60 MG PO (08:32)
[2024-01-12] MEDS: buPROPion HCl XL 300 MG TAB.ER.24H PO (08:34)
--- NOTE | 2024-01-12 08:55 | PM.PSYDC ---
DS: Providers Provider Date of Service: 01/12/24 Date of admission: 01/02/24 11:53 Date of discharge: 01/12/24 Primary care physician: Frankie Wilcox PA-C Attending physician on admission: Maxi Andrade Consults: 01/02/24 13:43 Addiction Medicine Routine Consulting Provider: Addiction Covering Reason for consultation: Postjeny Schaffer-Donovan Has provider been notified: Yes Attending physician on discharge: Maxi Andrade DS: Diagnosis Discharge Diagnosis (1) MDD (major depressive disorder), recurrent severe, without psychosis: Status: Acute (2) PTSD (post-traumatic stress disorder): Status: Acute (3) Cocaine use disorder: Status: Acute (4) Opioid use disorder: Status: Acute DS: Medications Discharge Medications Home Medications: Home Medications ?Medication ?Instructions ?Recorded ?Confirmed methadone 10 mg/mL oral concentrate 60 mg PO DAILY 12/31/23 12/31/23 Mental Status Exam Mental Status Exam Narrative: Pt is alert and oriented; behavior is cooperative, friendly and calm; patient is not in distress; dressed in casual attire with unkempt facial hair but adequate hygiene; mood is described as good and affect congruent; eye contact appropriate; Speech is normal rate, volume and prosody and not pressured; no psychomotor agitation/retardation present; thought process is organized and goal directed; Thought content is on tx; otherwise pertinent to relevant topics and without any delusional content, paranoid ideations or grandiosity; denies any SI/HI. There is no evidence of perceptual disturbance. Patients insight and judgment are intact. Data Imaging Diagnostic Imaging Impressions Chest X-Ray 01/03/24 15:40 IMPRESSION: No acute pulmonary disease. Electronically signed by: Leander Farias MD 01/04/2024 08:40 AM EDT DS: Summary Hospital Course Hospital Course: HPI: Pt is a 53 male with PMH depression, PtSD, cocaine/heroin abuse, no methadone, who presents for worsening depression, SI resulting in suicide attempt by overdose. Patient reports he has been on and off depressed for years. This summer his depression worsened when he was worried about eviction and then worried about his Section 8 housing welfare being canceled. This stress added on to chronic moderate depression triggered him to relapse on daily crack/heroin and patient further isolated himself from his family and sunk into a deeper depression and endorses, diminished interest, excessive guilt, low energy, poor concentration, poor appetite with significant weight loss, trouble sleeping and SI. During the summer he was started on low dose of Wellbutrin but did not take it for more than a few weeks which he regrets. This past week patient, embroiled in substance abuse, depression, frustration, while at a friend's house he saw a bottle of pills and in front of his friend, grabbed it and swallowed them in an impulsive suicide attempt. His friend made him vomited up and brought him to the hospital. Patient denies any history of manic type symptoms or behavior; denies any AVH; denies any history of suicide attempts prior to this. Every few months relapses with cocaine/heroin abuse; denies other drugs including alcohol abuse. Formulation/clinical reason: Years of depression and untreated trauma; no therapy and no real medication trials. Patient agrees to restart Wellbutrin sits he tolerated it and it helped him to quit smoke cigarettes. Discussing treatment for substance abuse; patient was sober on Vivitrol and wished to his back on it. Currently on methadone Hospital course: 01/03 Patient remains depressed however he says it was helpful to go to groups. Some trouble sleeping but clonidine helped; struggling with excessive self-deprecating thoughts and guilt. Agrees to increase Wellbutrin to 300 mg' -reviewed labs, x-ray with patient which was unremarkable 01/05 depressed still, no appetite and forcing self to eat; says miljose is helping, being around people, talking about his problems. Continued insomnia. Discussed meds, risks/side-effects and he agrees to adding MIrtazapine for continued depression as well as insomnia, low appetite 01/08 with increased Wellbutrin dose and mirtazapine, patient's mood significantly improved and he reports depression gone, anxiety under control; patient eating more as well. Feels medications are helpful and wants to continue. Optimistic. Patient would like to get into a program though he has refused several options presented to; he says otherwise he will just discharge home and work on sobriety as an outpatient 01/10 patient has remained in a good mood, with depression fully resolved for several days. Patient continues to report that he is good and feels that medications have worked well; he is optimistic and looking forward to discharge tomorrow with plans to go to his apartment, which he says his outpatient workers have reassured him that it is very unlikely he will get evicted. Patient and securities underwriter again discussed substance abuse, sobriety and patient wants to remain on methadone; he has refused various programs for substance abuse and instead plans to continue working on his sobriety as an outpatient. Remains with insomnia but says overall sleeping much better. Discussed hypertension of which patient has been aware; does not want to add medications at this time. Weighed patient and he is now 49 kg; patient reports that his appetite is fully back and he agrees that weight loss was most likely due to low appetite due to depression and chronic, severe cocaine/heroin abuse. Patient is at baseline. He is in a good mood; depression, SI remain fully resolved. Patient feels his medications are helpful. He is optimistic and future oriented. Patient of course remains vulnerable to relapse and decompensation; however this is a chronic struggle, with which he fully understands. He says he is committed to working on his sobriety and he remains hopeful about staying sober. Patient is not in imminent risk for harm to self or others appropriate to return to the community for treatment. Medications: Wellbutrin XL 300 mg Mirtazapine 7.5mg Clonidine p.r.n. Methadone 60 mg Time spent discussing smoking cessation with patient: 3 to 10 minutes Status at Discharge Functional status at discharge: independent ambulation Overall status at discharge: patient is back to baseline Time Spent with Patient Time attestation: Total time managing care of this patient today _40___ minutes. Time spent: Greater than 30 minutes Specific discharge activities: Met with patient; discussed with team; prescriptions, tardive Discharge Plan Discharge Anticipated Discharge Date/Time: 01/12/24 11:30 Patient Disposition: Home, Self-Care Discharge Diagnosis: MDD, recurrent, severe without psychosis, in full remission Referrals: [facility]- therapy and medication management [Other] - 1 Week (Tuesday - Tuesday 8:00 a.m. ? 8:00 p.m.) PHP/IOP [Other] - 1 Week (Please reach out to [facility]'s PHP/IOP if you are interested in attending group therapy at the number above ) Frankie Wilcox PA-C [Primary Care Provider] - 1 Week (office will reach out to PT for follow up appoinment.) Discharge Medications: New clonidine HCl 0.1 mg Tablet 0.1 mg PO Q4H PRN (Reason: anxiety/insomnia) 30 Days Qty: 90 0RF Protocol: Hold for SBP< HOLD for SBP < : 90 bupropion HCl 300 mg Tablet Extended Release 24 Hr 300 mg PO DAILY 30 Days Qty: 30 0RF hydroxyzine HCl 50 mg Tablet 50 mg PO Q6H PRN (Reason: Anxiety) 30 Days Qty: 90 0RF mirtazapine 7.5 mg Tablet 7.5 mg PO BEDTIME 30 Days Qty: 30 1RF magnesium hydroxide [Milk of Magnesia] 400 mg/5 mL Suspension 30 ml PO DAILY PRN (Reason: Constipation) 30 Days Qty: 3780 0RF multivitamin [Daily-Mere] Tablet 1 tab PO DAILY 30 Days Qty: 30 1RF Continued methadone 10 mg/mL Concentrate 60 mg PO DAILY Discharge Orders: Discharge Order (Routine); Ordered 01/12/24 Ordered By: Maxi Andrade Diet: Regular diet Activity on Discharge: As tolerated Stand Alone Forms: Patient Portal Discharge page, Community Support Print Language: Hungarian Care Plan Goals: Maintain mood and safe behaviors Take medications as prescribed Continue to pursue sobriety Practice coping skills Continue with outpatient providers and reach out to them as needed Health Concerns: Mood stability and behaviors Sobriety low body weight Hypertension Plan of Treatment: Follow up with your PCP, psychiatric provider and other outpatient providers regarding above concerns Take medications as prescribed Assessment: Risk assessment at time of discharge:? Patient was interviewed prior to discharge and found to be fully oriented and without any SI or HI. Patient has improved insight and judgment and wants to continue treatment. Patient is not in imminent risk of harm to self or others and has a safety plan that includes presenting to the closest ER or calling 911 if feeling unsafe.? Patient has been observed closely by nursing and unit staff throughout admission; patient has not engaged in any behaviors that suggest dangerousness to self or others and has demonstrated appropriate behaviors and impulse control Discharge Date/Time: 01/12/24 11:51
[2024-01-12] MEDS: Naloxone HCl Nasal TAKE HOME 4 MG SPRAY 8 MG NOSTRILALT (10:58)
== END 2024-01-12 11:51 | disposition home or self-care (01) | DRG 751 ==
LOC: HO.ED 01-02 07:06 → HO.PM5 01-02 12:04
PROVIDERS: Emergency Medicine; Registered Nurse Emergency; Admitting Provider Psychiatry & Neurology Psychiatry; Emergency Provider Emergency Medicine Emergency Medical Services; PCP Physician Assistant; Visit Provider Psychiatry & Neurology Psychiatry
DX: F33.2 Major depressive disorder, recurrent severe without psychotic features (principal); R45.851 Suicidal ideations; F17.210 Nicotine dependence, cigarettes, uncomplicated; F11.20 Opioid dependence, uncomplicated; J45.909 Unspecified asthma, uncomplicated; F43.10 Post-traumatic stress disorder, unspecified; F14.10 Cocaine abuse, uncomplicated; Z71.6 Tobacco abuse counseling; Z23 Encounter for immunization; Z79.899 Other long term (current) drug therapy
CPT/HCPCS: 36415; 71046; 80053; 80061; 80307; 81001; 83036; 85025; 90656; 93005; 99285; S9485

== ENCOUNTER → 2024-01-02 11:53 | Outpatient (BNV) | payer OTHER, SELFPAY | PROVIDERS: Admitting Provider Psychiatry & Neurology Psychiatry; Emergency Provider Emergency Medicine Emergency Medical Services; PCP Physician Assistant; Visit Provider Psychiatry & Neurology Psychiatry | DX: F33.2 Major depressive disorder, recurrent severe without psychotic features (principal); F14.10 Cocaine abuse, uncomplicated; F11.90 Opioid use, unspecified, uncomplicated; F43.11 Post-traumatic stress disorder, acute | CPT/HCPCS: 90792; 99231; 99232; 99239 ==

== ENCOUNTER 2024-02-16 10:28 | Outpatient (AMB) | payer OTHER, SELFPAY ==
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
[2024-02-16 10:35] VITALS: BP 120/72; PULSE 70; O2SAT 97; BMI 15.7
== END 2024-02-16 11:19 | disposition home or self-care (01) ==
PROVIDERS: PCP Physician Assistant; Visit Provider Physician Assistant
DX: R64 Cachexia (principal); F33.2 Major depressive disorder, recurrent severe without psychotic features; F19.90 Other psychoactive substance use, unspecified, uncomplicated; E78.9 Disorder of lipoprotein metabolism, unspecified; Z13.1 Encounter for screening for diabetes mellitus; F17.200 Nicotine dependence, unspecified, uncomplicated

== ENCOUNTER → 2024-02-16 10:28 | Outpatient (BNVA) | payer OTHER, SELFPAY | PROVIDERS: PCP Physician Assistant; Visit Provider Physician Assistant | DX: F19.90 Other psychoactive substance use, unspecified, uncomplicated (principal); F33.2 Major depressive disorder, recurrent severe without psychotic features; E78.9 Disorder of lipoprotein metabolism, unspecified; R64 Cachexia; F17.200 Nicotine dependence, unspecified, uncomplicated | CPT/HCPCS: 96127; 99212 ==

== ENCOUNTER 2024-02-24 17:14 | Emergency (ER) | payer OTHER, SELFPAY ==
--- NOTE | 2024-02-24 | ECG_ITS ---
Test Reason : poly substance abuse Blood Pressure : / mmHG Vent. Rate : 070 BPM Atrial Rate : 070 BPM P-R Int : 166 ms QRS Dur : 088 ms QT Int : 388 ms P-R-T Axes : 082 066 074 degrees QTc Int : 419 ms Normal sinus rhythm Normal ECG When compared with ECG of 02-JAN-2024 08:57, No significant change was found Referred By: Generic ED Physician Electronically Signed By:Vitor Rodriguez
[2024-02-24 17:36] VITALS: BP 132/66; PULSE 83; RESP 18; TEMP 37.6; O2SAT 96; BMI 16.1
--- NOTE | 2024-02-24 17:37 | ED_ITS ---
HPI - Psych General Chief Complaint: Psychiatric Symptoms Stated Complaint: crisis eval Time Seen by Provider: 02/24/24 17:50 Source: patient Limitations: no limitations History of Present Illness ED Provider: Coleen Browning PA-C HPI Narrative: 54-year-old male with a history of polysubstance abuse, PTSD, major depressive disorder, presents with SI. Patient does not have a specific plan for self- harm. He states he is feeling ?worthless?. When asked if there were any specific triggers for the way he is feeling, he denies. Patient states he had a suicide attempt last month, he is not forthcoming about details. Related Data Home Medications ?Medication ?Instructions ?Recorded ?Confirmed methadone 10 mg/mL oral concentrate 60 mg PO DAILY 12/31/23 02/16/24 Previous Rx's ?Medication ?Instructions ?Recorded bupropion HCl 300 mg 24 hr tablet, 300 mg PO DAILY 30 days #30 tabs 01/12/24 extended release clonidine HCl 0.1 mg tablet 0.1 mg PO Q4H PRN anxiety/insomnia 01/12/24 30 days #90 tabs hydroxyzine HCl 50 mg tablet 50 mg PO Q6H PRN Anxiety 30 days 01/12/24 #90 tabs magnesium hydroxide 400 mg/5 mL 30 ml PO DAILY PRN Constipation 30 01/12/24 oral suspension (Milk of Magnesia) days #3,780 mL mirtazapine 7.5 mg tablet 7.5 mg PO BEDTIME 30 days #30 tabs 01/12/24 multivitamin (Daily-Mere tablet) 1 tab PO DAILY 30 days #30 tabs 01/12/24 Allergies Allergy/AdvReac Type Severity Reaction Status Date / Time seafood Allergy Severe anaphylaxis Uncoded 02/24/24 17:37 SEAFOOD Allergy Unknown SWELLING Uncoded 02/24/24 17:37 Review of Systems 2 Review of Systems: Yes all other systems are reviewed and are negative Constitutional: Constitutional: Denies fatigue and Denies fever(s) Cardiovascular: Cardiovascular: Denies chest pain and Denies dyspnea Respiratory: Respiratory: Denies dyspnea Gastrointestinal: Gastrointestinal: Denies abdominal pain Endocrine: Endocrine: Denies fatigue PMFSH Past Medical History Attestation statement: The following information was validated with the patient. Medical History (Updated 02/24/24 @ 18:49 by CHAZ Hummel) Depression PTSD (post-traumatic stress disorder) Opioid use disorder Cocaine use disorder MDD (major depressive disorder), recurrent severe, without psychosis Asthma Surgical History Hx of appendectomy Social History Social History Household Members: None Housing: Apartment Do you presently have visiting nurse or other home services: Yes ([facility] in [place]) Alcohol intake: current Alcohol intake frequency: a few times a week Patient Tobacco Use Status: Current everyday Tobacco user Tobacco use type: Cigarette Cigarette Packs Per Day: 1 Cigarettes Per Day: 20.0 Years Smoked: 35 Smoked in Last 30 Days: Yes e-Cigarette/Vaping Use: Never Used Second Hand Smoke Exposure: No Use of substances other than those prescribed or required for medical reasons: Yes Substance Use Type: Crack/Cocaine and Heroin Advance Directives: No Advance Directives Information Provided: No Do you have a plan to hurt others: No Plan service: No Current occupational status: unemployed Sexual orientation: Straight/Heterosexual Cognitive needs: No Hearing needs: No Vision needs: No Physical Exam 2 Vital Signs: Vital Signs: Last Vital Signs Temp 99.7 F 02/24/24 17:36 Pulse 83 02/24/24 17:36 Resp 18 02/24/24 17:36 BP 132/66 02/24/24 17:36 Pulse Ox 96 02/24/24 17:36 O2 Del Method Room Air 02/24/24 17:36 BMI result Body Mass Index 16.1 Const: Other: Alert, Orientation/consciousness: patient oriented x3 Resp: Other: Nonlabored respirations Cardio: Other: Normal peripheral perfusion Skin: Other: Warm dry no rash Neuro: General: patient oriented x3, no focal motor deficits and CN's II-XI intact bilaterally Psych: Other: Calm cooperative Course Course Course Narrative: This is an RME performed by Pedro Lozada CNP: Additional HPI, ROS, PE not included below will be deferred to primary provider. Patient is a 54-year-old male who presents emergency department requesting assistance, life stressors, suicidal ideations but does not offer any specific plan, difficulty sleeping. Admits to a prior attempt within the past 3 months but does not provide any specific detail regarding this. Reports therapist and psychiatrist are through [facility], has not been taking medications over the past 2 weeks. Using intranasal heroine, a bundle daily, smoking crack. Plan: Serum labs, ESCALERA, ethanol, care team eval Medical Decision Making Medical Decision Making MDM Narrative: 54-year-old male with a history of polysubstance abuse, PTSD, major depressive disorder, presents with SI. Patient does not have a specific plan for self- harm. He states he is feeling ?worthless?. When asked if there were any specific triggers for the way he is feeling, he denies. Patient states he had a suicide attempt last month, he is not forthcoming about details. Problem: Polysubstance abuse, psychiatric illness History: Per patient I have considered the following differential diagnoses: SI, HI, decompensated psychiatric illness, drug/alcohol intoxication Plan: Patient will be referred to the care team, he is high risk for an actual suicide attempt given concurrent substance abuse with psychiatric illness. I foresee him being a bed search. Screening labs including serum ethanol and drug screen Were ordered. I have independently reviewed the following tests: Labs: No leukocytosis, not anemic, no electrolyte abnormality, ethanol negative, drug screen pending is in process Lab Data 02/24/24 18:15 02/24/24 18:15 Labs: Lab Results 02/24/24 Range/Units 18:15 WBC 10.3 (4.8-10.8) X10*3/uL RBC 3.91 L (4.60-5.80) X10*6/uL Hgb 12.3 L (14.0-18.0) g/dl Hct 35.3 L (42.0-52.0) % MCV 90.3 (80.0-98.0) fL MCH 31.5 (27.0-33.0) pg MCHC 34.8 (31.0-36.0) g/dl RDW 13.1 (11.0-16.0) % Plt Count 272 (160-400) X10*3/uL MPV 9.3 L (9.4-12.4) fL Immature Gran % (Auto) 0.3 (0.0-0.4) % Neut % (Auto) 67.0 (45-73) % Lymph % (Auto) 25.2 (20-40) % [place] % (Auto) 5.6 (2-11) % Eos % (Auto) 1.5 (0-4) % Baso % (Auto) 0.4 (0-2) % Lymph # (Auto) 2.6 (1.2-4.9) X10*3/uL [place] # (Auto) 0.6 (0.1-1.2) X10*3/uL Eos # (Auto) 0.2 (0.0-0.4) X10*3/uL Baso # (Auto) 0.0 (0.0-0.2) X10*3/uL Abs Immat Gran (auto) 0.03 (0.00-0.03) X10*3/uL Absolute Neuts (auto) 6.9 (2.0-8.3) x10*3/uL Absolute Nucleated RBC 0.000 (0.0-0.012) X10*3/uL Nucleated RBC % (auto) 0.0 (0.0-0.2) /100WBC Sodium 139 (135-145) mmol/L Potassium 3.7 (3.3-5.1) mmol/L Chloride 103 (96-108) mmol/L Carbon Dioxide 31 H (22-29) mmol/L Anion Gap 9 L (12-20) BUN 12 (9-16) mg/dL Creatinine 0.95 (0.5-1.4) mg/dL Estim Creat Clear Calc 63.2 Estimated GFR > 60 Random Glucose 90 (60-115) mg/dL Calcium 9.0 (8.4-10.2) mg/dL Total Bilirubin 0.3 (0.0-1.0) mg/dL AST 36 (5-37) U/L ALT 27 (0-40) U/L Alkaline Phosphatase 106 (39-117) U/L Total Protein 6.7 (6.5-8.0) g/dL Albumin 3.9 (3.5-5.0) g/dL Ethyl Alcohol < 10 mg/dL Discharge Plan Discharge Clinical Impression: Suicidal ideation Patient Disposition: Still a Patient Prescriptions: No Action methadone 10 mg/mL Concentrate 60 mg PO DAILY clonidine HCl 0.1 mg Tablet 0.1 mg PO Q4H PRN (Reason: anxiety/insomnia) 30 Days Qty: 90 0RF Protocol: Hold for SBP< HOLD for SBP < : 90 bupropion HCl 300 mg Tablet Extended Release 24 Hr 300 mg PO DAILY 30 Days Qty: 30 0RF hydroxyzine HCl 50 mg Tablet 50 mg PO Q6H PRN (Reason: Anxiety) 30 Days Qty: 90 0RF mirtazapine 7.5 mg Tablet 7.5 mg PO BEDTIME 30 Days Qty: 30 1RF magnesium hydroxide [Milk of Magnesia] 400 mg/5 mL Suspension 30 ml PO DAILY PRN (Reason: Constipation) 30 Days Qty: 3780 0RF multivitamin [Daily-Mere] Tablet 1 tab PO DAILY 30 Days Qty: 30 1RF Interventions: Hanna-Suicide Risk Severity Scale Last Done: 02/24/24 17:50 Print Language: Occitan
--- NOTE | 2024-02-24 17:58 | PC.NURSE ---
Patient arrives to POD with complaints of increased life stressors and drug use. Changed over by security and POD tech. Belongings locked in locker 2. Reports has tried to stop using drugs and has been trying to hide it from his family so that he can see his grandkids. Last smoked crack and snorted heroin today. Patient seeking detox with residential placement. [facility] would prefer to go to [facility]. Is seen by psychiatrist in community but states has not been med complaint for about 10 days. [facility] has been going to [facility] to get his methadone (believes it is 60mg). Sitting in 2 at this time, calm and cooperative. No withdrawal symptoms noted
--- NOTE | 2024-02-24 18:13 | PC.NURSE ---
Med rec completed with patient- patient reports was discharged from this facility on 300mg of Wellbutrin and has been taking (2) 150mg tablets
--- NOTE | 2024-02-24 18:19 | MHC.EDTECH ---
Patient unable to provide urine sample at this time.
[2024-02-24 18:21] LABS: MANUAL DIFF FLAG NO
[2024-02-24 18:23] LABS: Basophils Percent Auto 0.4 % (0-2); Eosinophils Absolute Auto 0.2 X10*3/uL (0.0-0.4); Eosinophils Percent Auto 1.5 % (0-4); Hematocrit 35.3 % (42.0-52.0); Hemoglobin 12.3 g/dl (14.0-18.0); Imm Gran Abs Auto 0.03 X10*3/uL (0.00-0.03); Imm Gran Pct Auto 0.3 % (0.0-0.4); Lymphocytes Absolute Auto 2.6 X10*3/uL (1.2-4.9); Lymphocytes Percent Auto 25.2 % (20-40); Mean Corpuscular HGB Conc 34.8 g/dl (31.0-36.0); Mean Corpuscular Hemoglobin 31.5 pg (27.0-33.0); Mean Corpuscular Volume 90.3 fL (80.0-98.0); Mean Platelet Volume 9.3 fL (9.4-12.4); Monocytes Absolute Auto 0.6 X10*3/uL (0.1-1.2); Monocytes Percent Auto 5.6 % (2-11); Neutrophils Absolute Auto 6.9 x10*3/uL (2.0-8.3); Platelet Count 272 X10*3/uL (160-400); Red Blood Count 3.91 X10*6/uL (4.60-5.80); Red Cell Distribution Width 13.1 % (11.0-16.0); White Blood Count 10.3 X10*3/uL (4.8-10.8)
[2024-02-24 18:38] LABS: Alanine Aminotransferase 27 U/L (0-40); Albumin Level 3.9 g/dL (3.5-5.0); Alkaline Phosphatase 106 U/L (39-117); Anion Gap 9 (12-20); Aspartate Amino Transferase 36 U/L (5-37); Bilirubin Total 0.3 mg/dL (0.0-1.0); Blood Urea Nitrogen 12 mg/dL (9-16); Carbon Dioxide 31 mmol/L (22-29); Chloride 103 mmol/L (96-108); Creatinine Clr Calc Pharmacy 63.2; Estimated Glomerular Filt Rate > 60; Ethanol < 10 mg/dL; Glucose Random 90 mg/dL (60-115); Potassium 3.7 mmol/L (3.3-5.1); Sodium 139 mmol/L (135-145); Total Protein 6.7 g/dL (6.5-8.0)
[2024-02-24 18:47] LABS: Appearance Urine Clear; Color Urine Dark Yellow; Glucose Urine UA Negative (Negative); Leukocyte Esterase Urine Negative (Negative); Nitrite Urine Negative (Negative); PH 5.5 (5.0-9.0); Specific Gravity - Urine >= 1.030 (1.005-1.025); UMIC TRIGGER UACC YES; Urine Blood Negative (Negative); Urine Ketones Trace mg/dL (Negative); Urine Protein 30 (1+) mg/dL (Neg-Trace)
[2024-02-24 18:54] LABS: Amphetamine Screen Urine Not Detected (Not Detect); Barbiturates, Urine Not Detected (Not Detect); Benzodiazepines Screen Urine Not Detected (Not Detect); Buprenorphine Scr Not Detected (Not Detect); Cannabinoid Screen Urine POSITIVE (Not Detect); Cocaine Screen Urine POSITIVE (Not Detect); Fentanyl, urine POSITIVE (Not Detect); Methadone Screen, Urine Positive (Not Detect); Opiate Screen Urine POSITIVE (Not Detect); Oxycodone Screen Urine Not Detected (Not Detect); Phencyclidine Screen Urine Not Detected (Not Detect)
[2024-02-24 19:01] LABS: Bacteria Urine None Seen (None Seen); RBC Urine 0-2 /HPF (0-2); Squamous Epithelial Cell Urine 0-2 /HPF (0-2); WBC Urine 0-5 /HPF (0-5)
--- NOTE | 2024-02-24 19:09 | PC.NURSE ---
patient appears to remain at rest presently respirations are even and unlabored patient appears in no distress.
--- NOTE | 2024-02-24 19:11 | PC.NURSE ---
patient appears to remain at rest presently respirations are even and unlabored patient appears in no distress
[2024-02-24] MEDS: Mirtazapine 7.5 MG TABLET PO (21:10)
[2024-02-25 06:42] VITALS: BP 152/85; PULSE 56; RESP 16; TEMP 36.6; O2SAT 96
--- NOTE | 2024-02-25 07:29 | PC.NURSE ---
Assumed care of patient at 0645, patient appears to be restign in his room, calm and cooperative, offering no complaints to this RN. Pt endorses receiving his methadone at [facility], [facility] faxed over, awaiting them to call us back at this time. Patient aware of plan of care for IPL[facility]
--- NOTE | 2024-02-25 07:51 | HE.PHANOTE ---
METHADONE DOSE CONFIRMATION LAST DOSE 60MG FROM [facility] ON 02/23
--- NOTE | 2024-02-25 09:17 | PHA.MEDREC ---
Pharmacy Consult ? Medication Reconciliation Pharmacy has REVIEWED the medication reconciliation. RN had only 300 mg wellbutrin included in med rec, patient is prescribed both 150 mg and 300 mg. Called [facility] who was able to confirm patient picks up both of them thus on 450 mg.
[2024-02-25] MEDS: methADONE HCl 20 MG/2 ML ORAL.CONC 60 MG PO (09:21)
[2024-02-25] MEDS: Multivitamin TABLET 1 TAB PO (09:21)
[2024-02-25] MEDS: buPROPion HCl XL 300 MG TAB.ER.24H PO (09:37)
[2024-02-25] MEDS: buPROPion HCl XL 150 MG TAB.ER.24H PO (09:38)
[2024-02-25 17:12] VITALS: BP 128/63; PULSE 58; RESP 16; TEMP 36.7; O2SAT 97
--- NOTE | 2024-02-25 18:52 | PC.NURSE ---
Assumed care of pt. Pt lying on stretcher, no acute distress at this time, calm and cooperative. Continuing safety observations per orders.
--- NOTE | 2024-02-25 19:15 | MHC.CARE ---
Pt continues to be IPL[facility], dispo discussed with Dr. Gutiérrez
[2024-02-25 20:20] VITALS: BP 128/63
[2024-02-25] MEDS: cloNIDine HCL 0.1 MG TABLET PO (20:20)
[2024-02-25] MEDS: hydrOXYzine HCL 50 MG TABLET PO (20:21)
[2024-02-25] MEDS: Mirtazapine 7.5 MG TABLET PO (20:21)
--- NOTE | 2024-02-25 20:34 | PC.NURSE ---
Pt remaining in bed for night time medications. No acute distress, calm and cooperative.
[2024-02-26 05:27] VITALS: BP 163/85; PULSE 65; RESP 17; TEMP 36.9; O2SAT 97
--- NOTE | 2024-02-26 06:49 | PC.NURSE ---
Addendum entered by Caitlin Stnaton 02/26/24 06:50: Correction: Continue plan of care for IPLOC Original Note: Assumed care of patient at 0645, patient appears to be sleeping, respirations even and unlabored, no apparent distress noted. Continue plan of care for CARE team calista
[2024-02-26] MEDS: methADONE HCl 20 MG/2 ML ORAL.CONC 60 MG PO (08:16)
[2024-02-26] MEDS: Multivitamin TABLET 1 TAB PO (08:17)
[2024-02-26] MEDS: buPROPion HCl XL 150 MG TAB.ER.24H PO (08:17)
[2024-02-26] MEDS: buPROPion HCl XL 300 MG TAB.ER.24H PO (09:02)
[2024-02-26 16:53] VITALS: BP 146/81; PULSE 62; RESP 16; TEMP 36.7; O2SAT 98
[2024-02-26] MEDS: Mirtazapine 7.5 MG TABLET PO (20:13)
--- NOTE | 2024-02-26 23:44 | PC.NURSE ---
Took of care at 23:00, pt sleeping at this time.
[2024-02-27 01:35] VITALS: BP 148/76; PULSE 60; RESP 16; TEMP 36.8; O2SAT 98
--- NOTE | 2024-02-27 05:57 | PC.NURSE ---
Pt sleeping, oob once during the night, pt cooperative
[2024-02-27] MEDS: Acetaminophen 325 MG TABLET 650 MG PO (06:16)
--- NOTE | 2024-02-27 06:17 | PC.NURSE ---
medicated pt for back pain.
[2024-02-27] MEDS: methADONE HCl 20 MG/2 ML ORAL.CONC 60 MG PO (08:29)
[2024-02-27] MEDS: Multivitamin TABLET 1 TAB PO (08:29)
[2024-02-27] MEDS: buPROPion HCl XL 300 MG TAB.ER.24H PO (08:30)
[2024-02-27 08:35] VITALS: BP 144/91; PULSE 71; RESP 18; TEMP 36.9; O2SAT 97
--- NOTE | 2024-02-27 08:35 | PC.NURSE ---
pt states that he only take 300mg wellbutrin, and not the total 450 (300+150) as ordered. 150mg held
--- NOTE | 2024-02-27 09:15 | MHC.EDTECH ---
Patient requested to tale a shower. Gave him clean hospital clothes and clean and changed his linen on the bed
--- NOTE | 2024-02-27 10:51 | MHC.CARE ---
[facility] dual [facility] bed search was conducted for this pt, however, there are no available beds. The search is now exhausted and will be continued tomorrow if deemed appropriate.
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
--- NOTE | 2024-02-27 15:18 | MHC.CARE ---
The patient was referred to [facility] per [facility], currently under review. Yogesh sent the last dose letter and this was faxed to [facility] as well. Last dose letter and referral hanging on white board with [facility] referral paperwork.? If accepted, the patient needs Lyft home to get meds and then a Lyft from home to [facility]. If he is declined from [facility] Vee says he can DC and follow up with [facility] to get into CSS program. Pt provided with safety plan and community resources already.?
[2024-02-27 18:05] VITALS: BP 144/91; PULSE 71; RESP 18; TEMP 36.9; O2SAT 97
== END 2024-02-27 18:17 | disposition home or self-care (01) ==
PROVIDERS: Internal Medicine; Nurse Practitioner Family; Emergency Provider Emergency Medicine Emergency Medical Services; PCP Physician Assistant
DX: F33.2 Major depressive disorder, recurrent severe without psychotic features (principal); R45.851 Suicidal ideations; F43.9 Reaction to severe stress, unspecified; F43.10 Post-traumatic stress disorder, unspecified; F17.210 Nicotine dependence, cigarettes, uncomplicated; F14.20 Cocaine dependence, uncomplicated; F11.20 Opioid dependence, uncomplicated; Z79.899 Other long term (current) drug therapy; Z51.81 Encounter for therapeutic drug level monitoring; Z71.51 Drug abuse counseling and surveillance of drug abuser
CPT/HCPCS: 36415; 80053; 80307; 81001; 85025; 93005; 99285; S9485

== ENCOUNTER → 2024-02-24 18:08 | Outpatient (BNV) | payer OTHER, SELFPAY | PROVIDERS: Emergency Provider Internal Medicine; PCP Physician Assistant; Visit Provider Internal Medicine Cardiovascular Disease | DX: R45.851 Suicidal ideations (principal); F19.10 Other psychoactive substance abuse, uncomplicated | CPT/HCPCS: 93010 ==

== ENCOUNTER → 2024-02-24 18:38 | Outpatient (BNV) | payer OTHER, SELFPAY | PROVIDERS: Emergency Provider Emergency Medicine Emergency Medical Services; PCP Physician Assistant; Visit Provider Social Worker | DX: F33.1 Major depressive disorder, recurrent, moderate (principal); F11.20 Opioid dependence, uncomplicated; F14.20 Cocaine dependence, uncomplicated | CPT/HCPCS: 99285 ==

== ENCOUNTER 2024-03-13 10:03 | Emergency (ER) | payer OTHER, SELFPAY ==
--- NOTE | ~2024-03-13 | US_ITS ---
EXAMINATION: US TRIPLEX LOWER EXTREMITY, LEFT CLINICAL INFORMATION: Left leg redness and swelling COMPARISON: None available. TECHNIQUE: Color-flow triplex imaging with spectral analysis and compression Doppler were performed on the left lower extremity. FINDINGS: Respiratory variation, normal compression and augmented flow are noted throughout the left lower extremity. The visualized common femoral vein, superficial femoral vein, profunda femoral vein, popliteal vein and midcalf peroneal and posterior tibial venous segments show no evidence of deep venous thrombosis. There is no Carpenter's cyst. US/US venous duplex LE LT IMPRESSION: No evidence of deep venous thrombosis involving the left lower extremity. Electronically signed by: Catrachito Garcia MD 03/13/2024 07:34 PM EST
--- NOTE | ~2024-03-13 | XR_ITS ---
EXAMINATION: XR FOOT, LEFT CLINICAL INFORMATION: pain, infection COMPARISON: None available. TECHNIQUE: AP, lateral, and oblique views of the left foot. FINDINGS: No acute fracture or dislocation. There is a probable old fracture involving the proximal phalanx of the hallux, distal diaphysis. This appears healed. Of note, profound osteopenia locally of the second, third, and fourth digits, starting at the level of the distal metadiaphyses of the proximal phalanges. Unknown if this is a real finding or artifact from technique. If real, findings suggest osteomyelitis. On the lateral projection, these findings are not definitively observed and therefore likely artifactual. There are no erosions or gross joint abnormalities. Midfoot and hindfoot appear normal. Mild soft tissue swelling of the forefoot. No radiopaque foreign body. XR/XR foot LT min 3V IMPRESSION: 1. Healing transverse nondisplaced fracture of the proximal phalanx of the hallux. 2. Probably technically artifactual osteopenia of the second through fourth digits, which is not definitively present on the lateral projection. Recommend repeat exam with improved technique to exclude osteomyelitic changes of these digits. Otherwise recommend clinical correlation if clinical presentation and symptomatology is congruent with these findings. Electronically signed by: Esteban Arreguin MD 03/13/2024 12:15 PM [facility]
[2024-03-13 10:10] VITALS: BP 144/84; PULSE 86; RESP 18; TEMP 36.7; O2SAT 97; BMI 16.2
[2024-03-13 10:29] LABS: MANUAL DIFF FLAG NO
[2024-03-13 10:31] LABS: Basophils Absolute Auto 0.1 X10*3/uL (0.0-0.2); Basophils Percent Auto 0.5 % (0-2); Eosinophils Absolute Auto 0.4 X10*3/uL (0.0-0.4); Hemoglobin 14.2 g/dl (14.0-18.0); Imm Gran Abs Auto 0.02 X10*3/uL (0.00-0.03); Imm Gran Pct Auto 0.2 % (0.0-0.4); Lymphocytes Absolute Auto 2.5 X10*3/uL (1.2-4.9); Lymphocytes Percent Auto 26.9 % (20-40); Mean Corpuscular HGB Conc 33.8 g/dl (31.0-36.0); Mean Corpuscular Hemoglobin 30.9 pg (27.0-33.0); Mean Corpuscular Volume 91.5 fL (80.0-98.0); Monocytes Absolute Auto 0.6 X10*3/uL (0.1-1.2); Monocytes Percent Auto 6.9 % (2-11); Neutrophils Absolute Auto 5.6 x10*3/uL (2.0-8.3); Neutrophils Percent Auto 61.5 % (45-73); Platelet Count 310 X10*3/uL (160-400); Red Blood Count 4.59 X10*6/uL (4.60-5.80); Red Cell Distribution Width 12.9 % (11.0-16.0); White Blood Count 9.1 X10*3/uL (4.8-10.8)
[2024-03-13 10:45] LABS: Alanine Aminotransferase 57 U/L (0-40); Albumin Level 4.1 g/dL (3.5-5.0); Alkaline Phosphatase 152 U/L (39-117); Anion Gap 11 (12-20); Aspartate Amino Transferase 51 U/L (5-37); Bilirubin Total 0.2 mg/dL (0.0-1.0); Blood Urea Nitrogen 11 mg/dL (9-16); C Reactive Protein 1.43 mg/dL (< or = 0.50); Calcium 8.9 mg/dL (8.4-10.2); Carbon Dioxide 31 mmol/L (22-29); Chloride 104 mmol/L (96-108); Creatinine Clr Calc Pharmacy 57.7; Estimated Glomerular Filt Rate > 60; Glucose Random 93 mg/dL (60-115); Potassium 4.8 mmol/L (3.3-5.1); Sodium 141 mmol/L (135-145); Total Protein 7.2 g/dL (6.5-8.0)
[2024-03-13 11:11] LABS: Erythrocyte Sedimentation Rate 14 MM/HR (0-15)
--- NOTE | 2024-03-13 14:49 | ED.GENADULT ---
HPI - General Adult General Chief complaint: Extremity Problem Stated complaint: L toe injury Time Seen by Provider: 03/13/24 14:48 Source: patient Mode of arrival: ambulatory Limitations: no limitations History of Present Illness ED Provider: Braxton LONG narrative: Patient is a 54-year-old male with history of PTSD, MDD, opioid and cocaine use disorder presenting to the ED from residential house with complaint of left great toe pain and blistering. States he accidentally kicked the wheel of a table at his home on Tuesday. Has had pain since. Noted blisters yesterday. Denies fevers, chills, body aches. Denies drainage from blisters. complaint: foot pain Onset (ago): day(s) Treatments prior to arrival: none Related Data Home Medications ?Medication ?Instructions ?Recorded ?Confirmed methadone 10 mg/mL oral concentrate 60 mg PO DAILY 12/31/23 02/25/24 bupropion HCl 150 mg 24 hr tablet, 150 mg PO DAILY 02/25/24 02/25/24 extended release Previous Rx's ?Medication ?Instructions ?Recorded bupropion HCl 300 mg 24 hr tablet, 300 mg PO DAILY 30 days #30 tabs 01/12/24 extended release clonidine HCl 0.1 mg tablet 0.1 mg PO Q4H PRN anxiety/insomnia 01/12/24 30 days #90 tabs hydroxyzine HCl 50 mg tablet 50 mg PO Q6H PRN Anxiety 30 days 01/12/24 #90 tabs magnesium hydroxide 400 mg/5 mL 30 ml PO DAILY PRN Constipation 30 01/12/24 oral suspension (Milk of Magnesia) days #3,780 mL mirtazapine 7.5 mg tablet 7.5 mg PO BEDTIME 30 days #30 tabs 01/12/24 multivitamin (Daily-Mere tablet) 1 tab PO DAILY 30 days #30 tabs 01/12/24 cephalexin 500 mg capsule 500 mg PO QID #40 caps 03/13/24 doxycycline hyclate 100 mg capsule 100 mg PO BID #20 caps 03/13/24 Allergies Allergy/AdvReac Type Severity Reaction Status Date / Time seafood Allergy Severe anaphylaxis Uncoded 03/13/24 10:12 SEAFOOD Allergy Unknown SWELLING Uncoded 03/13/24 10:12 Review of Systems Review of Systems: As per HPI Yes all other systems are reviewed and are negative Constitutional: Constitutional: Reports as per [facility] Past Medical History Medical History (Updated 03/14/24 @ 00:01 by Derek Tijerina) Depression PTSD (post-traumatic stress disorder) Opioid use disorder Cocaine use disorder MDD (major depressive disorder), recurrent severe, without psychosis Asthma Surgical History Hx of appendectomy Social History Social History Household Members: None Housing: Apartment Do you presently have visiting nurse or other home services: Yes ([facility] in [place]) Alcohol intake: current Alcohol intake frequency: a few times a week Patient Tobacco Use Status: Current everyday Tobacco user Tobacco use type: Cigarette Cigarette Packs Per Day: 1 Cigarettes Per Day: 20.0 Years Smoked: 35 e-Cigarette/Vaping Use: Never Used Second Hand Smoke Exposure: No Substance Use Type: Crack/Cocaine and Heroin Advance Directives: No Do you have a plan to hurt others: No Plan service: No Current occupational status: unemployed Sexual orientation: Straight/Heterosexual Cognitive needs: No Hearing needs: No Vision needs: No Physical Exam ED Vital Signs: Vital Signs - 24 hr 03/13/24 10:10 03/13/24 15:17 03/13/24 18:49 Temperature 98.1 F 97.9 F 98.2 F Pulse Rate 86 77 68 Respiratory Rate 18 18 17 Blood Pressure 144/84 H 148/88 H 153/75 H Pulse Oximetry 97 99 100 Oxygen Delivery Method Room Air Room Air Room Air BMI result Body Mass Index 16.2 Vital signs have been reviewed and appear to be correct. Blood pressure normal. Heart rate normal. Respiratory rate normal. Temperature normal. Oxygen saturation normal. Const General: cooperative, healthy appearing and no acute distress Orientation/consciousness: oriented to person, oriented to place, oriented to time and patient oriented x3 Limitations: no limitations HENMT Head: Yes normocephalic and Yes atraumatic Ears: external ears normal General nose exam: Normal external nose present Face and sinus: Yes face symmetric Mouth: oropharynx normal and moist mucous membranes Throat: Yes uvula midline Eyes Pupils: Equal, round and reactive pupils present Neck Neck: Yes normal visual inspection and Yes supple Resp Effort & Inspection: normal respiratory effort and able to speak in complete sentences Auscultation: clear to auscultation bilaterally Cardio Rate: regular rate Rhythm: regular rhythm Heart sounds: S1 normal heart sound present and S2 normal heart sound present GI Palpation (GI): Soft to palpation and nontender Auscultation: normoactive bowel sounds General: Yes no CVA tenderness Back/Spine/Pelvis Back: no CVA tenderness Skin General skin exam: elasticity normal and turgor normal Neuro General: oriented to person, oriented to place, oriented to time, patient oriented x3, moves all extremities, no focal motor deficits and CN's II-XI intact bilaterally Cranial nerves: Yes Equal, round and reactive pupils present Cognition (Neuro): normal cognition Extrem Other: General: Yes full ROM, Yes no pedal edema and Yes no calf tenderness Left lower extremity: lower leg Details: erythema Location: of the distal lower leg and warmth, ankle Details: swelling Details: diffusely, normal ROM and warmth Location: medially and foot Details: normal capillary refill, tenderness Location: of the great toe, toes with normal ROM, warmth Location: of the great toe and of the medial foot, ecchymosis dorsal 3rd toe Details: multiple (3rd and 4th toe, see photos), vascular exam Details: dorsalis pedis pulse present, posterior tibial pulse present and normal capillary refill and other (blistering to dorsal surface of great toe, erythema and warmth to great toe, medial foot, ecchymosis to 3rd & 4th toes) Psych Mental Status: mental status grossly normal Affect: normal affect Thought process: Normal thought process present Course Course Course Narrative: Shon Browning PA-C have accepted care of the patient and signed out pending ultrasound and final Disposition which is likely discharged home I have independently reviewed the following tests: Doppler study lower extremity: US/US venous duplex LE LT IMPRESSION: No evidence of deep venous thrombosis involving the left lower extremity. Electronically signed by: Catrachito Garcia MD 03/13/2024 07:34 PM [facility] Medications Administered Discontinued Medications Generic Name Dose Route Start Last Admin Trade Name Freq PRN Reason Stop Dose Admin Cephalexin HCl 500 mg 03/13/24 20:53 03/13/24 20:58 Cephalexin 500 Mg Capsule PO 03/13/24 20:54 500 mg ONCE ONE Administration Doxycycline Monohydrate 100 mg 03/13/24 20:53 03/13/24 20:58 Doxycycline Monohydrate 100 Mg Capsule PO 03/13/24 20:54 100 mg ONCE ONE Administration Medical Decision Making Medical Decision Making [facility] Narrative: Patient is a 54-year-old male with history of PTSD, MDD, opioid and cocaine use disorder presenting to the ED from residential house with complaint of left great toe pain and blistering. On exam patient is awake, A+Ox3, VS WNL, afebrile, normal neurological exam without focal deficits, physical exam findings as above. Given reported symptoms and physical exam findings, initial differential includes toe contusion versus fracture, cellulitis, do not suspect septic joint of ankle as patient has full ROM, is afebrile. Will also rule out DVT. Labs notable for no leukocytosis or left shift, normal ESR, elevated CRP. X-ray notable for healed fracture proximal phalanx of hallux. Question of osteomyelitis versus artifact. Based on labs, physical exam findings, do not suspect oseto. No open areas, patient afebrile. My interpretation is in agreement with the radiologist's interpretation. Patient signed out to [facility], pending results of ultrasound. If no DVT, patient stable for discharge on doxy and keflex with strict return precautions. Return precautions discussed with patient at bedside. Differential Diagnosis Differential Diagnoses: The differential diagnosis associated with the presentation includes As per [facility] Lab Data [facility] Lab Attestation statement: I reviewed the patient's lab results. As per [facility] 03/13/24 10:25 03/13/24 10:25 Labs: Lab Results 03/13/24 Range/Units 10:25 WBC 9.1 (4.8-10.8) X10*3/uL RBC 4.59 L (4.60-5.80) X10*6/uL Hgb 14.2 (14.0-18.0) g/dl Hct 42.0 (42.0-52.0) % MCV 91.5 (80.0-98.0) fL MCH 30.9 (27.0-33.0) pg MCHC 33.8 (31.0-36.0) g/dl RDW 12.9 (11.0-16.0) % Plt Count 310 (160-400) X10*3/uL MPV 9.0 L (9.4-12.4) fL Immature Gran % (Auto) 0.2 (0.0-0.4) % Neut % (Auto) 61.5 (45-73) % Lymph % (Auto) 26.9 (20-40) % Clinch % (Auto) 6.9 (2-11) % Eos % (Auto) 4.0 (0-4) % Baso % (Auto) 0.5 (0-2) % Lymph # (Auto) 2.5 (1.2-4.9) X10*3/uL Clinch # (Auto) 0.6 (0.1-1.2) X10*3/uL Eos # (Auto) 0.4 (0.0-0.4) X10*3/uL Baso # (Auto) 0.1 (0.0-0.2) X10*3/uL Abs Immat Gran (auto) 0.02 (0.00-0.03) X10*3/uL Absolute Neuts (auto) 5.6 (2.0-8.3) x10*3/uL Absolute Nucleated RBC 0.000 (0.0-0.012) X10*3/uL Nucleated RBC % (auto) 0.0 (0.0-0.2) /100WBC ESR 14 (0-15) MM/HR Sodium 141 (135-145) mmol/L Potassium 4.8 D (3.3-5.1) mmol/L Chloride 104 (96-108) mmol/L Carbon Dioxide 31 H (22-29) mmol/L Anion Gap 11 L (12-20) BUN 11 (9-16) mg/dL Creatinine 1.02 (0.5-1.4) mg/dL Estim Creat Clear Calc 57.7 Estimated GFR > 60 Random Glucose 93 (60-115) mg/dL Calcium 8.9 (8.4-10.2) mg/dL Total Bilirubin 0.2 (0.0-1.0) mg/dL AST 51 H (5-37) U/L ALT 57 H (0-40) U/L Alkaline Phosphatase 152 H (39-117) U/L C-Reactive Protein 1.43 H (< or = 0.50) mg/dL Total Protein 7.2 (6.5-8.0) g/dL Albumin 4.1 (3.5-5.0) g/dL External Record Review External record reviewed: Inpatient record, Office record and Outpatient record Prescription Management I considered prescription management with: Antibiotic Discharge Plan Discharge Clinical Impression: Cellulitis of foot Patient Disposition: Home, Self-Care Instructions: Cellulitis (DC) Additional Instructions: You have been evaluated in the emergency department today for skin infection, also known as cellulitis. If the area of inflammation was outlined today in the ER, please return to the ER immediately if the area of redness increases beyond the border. Please take your prescribed antibiotics as directed for the full course of the medication. You can use Tylenol or ibuprofen per package instructions every 6 hours as needed for pain. If necessary, you can alternate these medications so that you can take one medication every 3 hours. For instance, at noon take ibuprofen, then at 3:00 p.m. take Tylenol, then at 6:00 p.m. take ibuprofen. Please schedule an appointment for follow-up with your primary care physician as soon as possible. Assess the area at least once per day. Return to the emergency department if you experience recurrent vomiting, fevers greater than 100.4? F, increasing area of redness, warmth around the area, foul-smelling discharge from the area, increased tenderness around the area, or any other concerning symptoms. Prescriptions: New doxycycline hyclate 100 mg capsule 100 mg PO BID Qty: 20 0RF cephalexin 500 mg capsule 500 mg PO QID Qty: 40 0RF No Action methadone 10 mg/mL Concentrate 60 mg PO DAILY clonidine HCl 0.1 mg Tablet 0.1 mg PO Q4H PRN (Reason: anxiety/insomnia) 30 Days Qty: 90 0RF Protocol: Hold for SBP< HOLD for SBP < : 90 bupropion HCl 300 mg Tablet Extended Release 24 Hr 300 mg PO DAILY 30 Days Qty: 30 0RF hydroxyzine HCl 50 mg Tablet 50 mg PO Q6H PRN (Reason: Anxiety) 30 Days Qty: 90 0RF mirtazapine 7.5 mg Tablet 7.5 mg PO BEDTIME 30 Days Qty: 30 1RF magnesium hydroxide [Milk of Magnesia] 400 mg/5 mL Suspension 30 ml PO DAILY PRN (Reason: Constipation) 30 Days Qty: 3780 0RF multivitamin [Daily-Mere] Tablet 1 tab PO DAILY 30 Days Qty: 30 1RF bupropion HCl 150 mg tablet extended release 24 hr 150 mg PO DAILY Stand Alone Forms: Work/School Release Discharge Date/Time: 03/13/24 21:25 Print Language: Wolof
[2024-03-13 15:17] VITALS: BP 148/88; PULSE 77; RESP 18; TEMP 36.6; O2SAT 99
[2024-03-13 18:49] VITALS: BP 153/75; PULSE 68; RESP 17; TEMP 36.8; O2SAT 100
[2024-03-13 20:29] VITALS: BP 148/76; PULSE 67; RESP 18; TEMP 36.6; O2SAT 99
[2024-03-13] MEDS: cephALEXin 500 MG CAPSULE PO (20:58)
[2024-03-13] MEDS: Doxycycline Monohydrate 100 MG CAPSULE PO (20:58)
--- NOTE | 2024-03-13 20:59 | PC.NURSE ---
this nurse just made pt contact with this patient- pt irate about being in the ED since 10 am, pt requested po abx before leaving the ed- nurse spoke with a provider who ordered them and administered, vitals previously obtained, care team called as patient needs a lyft back to his rehab program at [address] [place] [address].
== END 2024-03-13 21:25 | disposition home or self-care (01) ==
PROVIDERS: Emergency Provider Emergency Medicine; PCP Physician Assistant
DX: L03.116 Cellulitis of left lower limb (principal); F11.10 Opioid abuse, uncomplicated; F14.10 Cocaine abuse, uncomplicated; M79.675 Pain in left toe(s); F17.210 Nicotine dependence, cigarettes, uncomplicated; Z79.899 Other long term (current) drug therapy
CPT/HCPCS: 36415; 73630; 80053; 85025; 85652; 86140; 93971; 99283; 99284

== ENCOUNTER → 2024-03-13 10:25 | Outpatient (BNV) | payer OTHER, SELFPAY | PROVIDERS: PCP Physician Assistant; Visit Provider Radiology Diagnostic Radiology | DX: S92.415D Nondisplaced fracture of proximal phalanx of left great toe, subsequent encounter for fracture with routine healing (principal) | CPT/HCPCS: 73630 ==

== ENCOUNTER 2024-05-09 07:53 | Outpatient (REF) | payer OTHER, SELFPAY ==
[2024-05-09 09:09] LABS: Alanine Aminotransferase 37 U/L (0-40); Albumin Level 4.3 g/dL (3.5-5.0); Anion Gap 11 (12-20); Aspartate Amino Transferase 30 U/L (5-37); Bilirubin Total 0.4 mg/dL (0.0-1.0); Blood Urea Nitrogen 16 mg/dL (9-16); Calcium 9.7 mg/dL (8.4-10.2); Carbon Dioxide 28 mmol/L (22-29); Chloride 105 mmol/L (96-108); Cholesterol 234 mg/dL (<200); Estimated Glomerular Filt Rate > 60; Glucose Fasting 91 mg/dL (60-99); HDL Cholesterol 55 mg/dL (>40); LDL Cholesterol Calculated 155 mg/dL (<100); Potassium 4.4 mmol/L (3.3-5.1); Sodium 140 mmol/L (135-145); Total Protein 7.9 g/dL (6.5-8.0); Triglycerides 120 mg/dL (<150)
[2024-05-09 09:20] LABS: Prostate Specific Antigen Scr 1.08 ng/mL (<0.05-4.0)
[2024-05-09 10:20] LABS: HIV AB/AG Nonreactive (Nonreactive); HIV Num 1 0.05 S/CO (0.00-0.99)
[2024-05-09 11:04] LABS: Alkaline Phosphatase 157 U/L (39-117)
== END 2024-05-09 07:54 | disposition home or self-care (01) ==
LOC: HO.LAB 07:53
PROVIDERS: PCP Physician Assistant; Visit Provider Physician Assistant
DX: R64 Cachexia (principal); Z13.1 Encounter for screening for diabetes mellitus; Z11.3 Encounter for screening for infections with a predominantly sexual mode of transmission; E78.9 Disorder of lipoprotein metabolism, unspecified; Z12.5 Encounter for screening for malignant neoplasm of prostate
CPT/HCPCS: 36415; 80053; 80061; 84153; 87389

== ENCOUNTER 2024-05-22 10:36 | Outpatient (AMB) | payer OTHER, SELFPAY ==
--- NOTE | 2024-05-22 10:40 | MHC.PC.OV ---
Vital Signs 05/22/24 10:41 Height 5 ft 9 in Weight 129 lb BMI 19.0 BP 134/82 Blood Pressure Location Lt brachial Position Sitting Pulse 92 Pulse Source Pulse Oximeter Temp 98.4 F Temp Source Temporal Artery Scan Pulse Oximetry (%) 97 Oxygen Delivery Method Room Air Intake Visit Reasons: Annual exam Intake Note: Patient is here today for a physical. Medicaid Eligibility Specialist Required: No Accompanied by: Self / Same As Patient Allergies seafood Allergy (Severe, Uncoded 05/22/24 10:55) anaphylaxis SEAFOOD Allergy (Unknown, Uncoded 05/22/24 10:55) SWELLING Medication List - Last Reconciled 05/22/24 by Frankie Wilcox PA-C bupropion HCl XL 300 mg PO DAILY 30 days clonidine HCl 0.1 mg See Protocol PO Q4H PRN 30 days hydroxyzine HCl 50 mg PO Q6H PRN 30 days magnesium hydroxide (Milk of Magnesia) 30 mL PO DAILY PRN 30 days methocarbamol 750 mg PO 3XD mirtazapine mg feeding tube multivitamin (Daily-Mere tablet) 1 tab PO DAILY 30 days Tobacco use date assessed: 05/22/24 Dental Screening Dental Screen Date: 05/22/24 Did you have a dental visit in the last 12 months?: No Did you have a dental problem in the last 6 months where you did not have access to dental care?: No Was dental information given to patient?: Patient has dentist HPI Annual exam HPI Details Patient is a 54-year-old male here today for a routine annual physical. He couldn't get into rehab. Had struggles with cocaine, fentanyl, THC. Opiate dependency: He is now about 3 month sober, living in [facility]. He is considering getting Vivitrol injections after he gets the methadone out of the system. Depression--> continues to feel somewhat depressed due to his continued addiction to drugs and some personal issues in his family. He does admit that mental health medications do help him particularly his Wellbutrin. He is seeing a mental health therapist and a psychiatrist who is managing his mental health medication. He is having a lot of trouble sleeping to which he attributes to him weaning off of methadone. He is willing to try a new medication to for sleep. Will try Seroquel 25 mg at bedtime. Vaccines: Up-to-date with flu, tetanus vaccine, declines PCV and COVID Colorectal cancer screening: willing to do cologaurd [facility] Medical History (Updated 05/22/24 @ 11:18 by Frankie Wilcox PA-C) Depression PTSD (post-traumatic stress disorder) Opioid use disorder MDD (major depressive disorder), recurrent severe, without psychosis Asthma Surgical History Hx of appendectomy Family History (Updated 05/22/24 @ 11:00 by Frankie Wilcox PA-C) Son Lymphoma Social History (Updated 05/22/24 @ 11:01 by Frankie Wilcox PA-C) Household Members: None Housing: Apartment Do you presently have visiting nurse or other home services: Yes ([facility] in [place]) Alcohol intake: current Alcohol intake frequency: holidays/special occasions only Alcohol type: beer Patient Tobacco Use Status: Current everyday Tobacco user Tobacco use type: Cigarette Cigarettes Per Day: 5 Years Smoked: 35 e-Cigarette/Vaping Use: Never Used Second Hand Smoke Exposure: No Substance Use Type: Crack/Cocaine and Heroin service: No Current occupational status: unemployed Sexual orientation: Straight/Heterosexual Cognitive needs: No Hearing needs: No Vision needs: No Questionnaire PHQ-9 Over the last 2 weeks, how often have you been bothered by any of the following problems? 1. Little interest or pleasure in doing things: not at all 2. Feeling down, depressed, or hopeless: not at all 3. Trouble falling or staying asleep, or sleeping too much: nearly every day 4. Feeling tired or having little energy: several days 5. Poor appetite or overeating: several days 6. Feeling bad about yourself - or that you are a failure or have let yourself or your family down: not at all 7. Trouble concentrating on things, such as reading the newspaper or watching television: not at all 8. Moving or speaking so slowly that other people could have noticed. Or the opposite - being so fidgety or restless that you have been moving around a lot more than usual: not at all 9. Thoughts that you would be better off or of hurting yourself in some way: not at all Total score: 5 Depression Screening Interpretation: Positive Depression Screening Follow-up: Existing condition and In treatment Depression Screening Done: Yes 45526 - PHQ-9 Billing: Yes Source: Developed by Drs. Kendrick Hay, Samantha Ordoñez, Pito Gavin and colleagues, with an educational juan from [employer]. Thrive Questionnaire Date Thrive assessed: 05/22/24 I am a: Patient What is your living situation today?: I have a steady place to live Within the past 12 months, did the food you bought not last and you didn't have the money to get more?: Never true Within the past 12 months, did you worry whether your food would run out before you got money to buy more?: Never true Do you have trouble paying for medicines?: I choose not to answer this question Do you have trouble getting transportation to medical appointments?: No Do you have trouble paying your heating and electricity bill?: Yes Do you have trouble taking care of your child, family member or friend?: No Do you have trouble with day-to-day activities such as bathing, preparing meals, shopping, managing finances, etc.?: No Are you currently unemployed and looking for a job?: Yes Are you interested in more education?: No Please select the resources that you would like help with: None Currently or been in a relationship where the following occur: I choose not to answer THRIVE Score: 1 AUDIT C Alcohol Use Questionnaire (AUDIT-C) 1. How often do you have a drink containing alcohol?: Never 3. How often do you have six or more drinks on one occasion?: Never Total Score: 0 JEANIE-7 AMB Questionnaire JEANIE-7 Date JEANIE - 7 assessed: 05/22/24 Feeling nervous, anxious, or on edge: 2 = More than half the days Not being able to stop or control worryin = More than half the days Worrying too much about different things: 2 = More than half the days Trouble relaxin = More than half the days Being so restless that it is hard to sit still: 2 = More than half the days Becoming easily annoyed or irritable: 0 = Not at all Feeling afraid as if something awful might happen: 0 = Not at all Total JEANIE-7 score (0-4 normal; 5-9 mild; 10-14 moderate; 15-21 severe): 10 Source: Developed by Drs. Kendrick Hay, Samantha Ordoñez, Pito Gavin and colleagues, with an educational juan from [employer]. JEANIE-7 Assessment Billing JEANIE-7 Assessment Tool: JEANIE-7 Assessment 22819 Review of Systems Const Denies body aches, Denies chills, Denies excessive sweating, Denies fatigue, Denies fever(s) and Denies headache(s) Eyes Denies blurry vision ENT Denies dysphagia, Denies vertigo, Denies dizziness, Denies headache(s), Denies hearing loss and Denies tinnitus Card Denies chest pain, Denies chest pain with activity, Denies syncope, Denies irregular heart rhythm and Denies dyspnea Resp Denies chest congestion, Denies cough, Denies hemoptysis, Denies dyspnea and Denies wheezing GI Denies abdominal pain, Denies melena, Denies hematochezia, Denies coffee ground emesis, Denies dysphagia, Denies diarrhea, Denies nausea and Denies vomiting Denies difficulty urinating, Denies dysuria, Denies urinary frequency, Denies urinary hesitancy and Denies urinary urgency Musc Denies arthralgias, Denies limited range of motion, Denies muscle cramps and Denies muscle weakness Skin/Breast Denies rash and Denies skin ulcer Neuro Denies Abnormal speech present, Denies confusion, Denies vertigo, Denies dizziness, Denies syncope, Denies headache(s), Denies memory loss and Denies seizure-like activity Psych Reports abnormal sleep pattern, Denies anxiety, Denies confusion, Denies depression, Denies memory loss, Denies panic attacks and Denies paranoia Endo Denies excessive sweating, Denies fatigue, Denies flushing, Denies polydipsia and Denies polyuria Aller/Immun Denies wheezing Physical exam (Primary Care) Vital Signs: Last Vital Signs Temp 98.4 F 05/22/24 10:41 Pulse 92 05/22/24 10:41 BP 134/82 05/22/24 10:41 Pulse Ox 97 05/22/24 10:41 Oxygen Delivery Method Room Air 05/22/24 10:41 BMI result Body Mass Index 19.0 Tobacco/Smoking Status: Tobacco use Status Tobacco use date assessed 05/22/24 05/22/24 10:41 Patient Tobacco Use Status Current everyday Tobacco 05/22/24 10:41 Tobacco use type Cigarette 05/22/24 10:41 e-Cigarette/Vaping Use Never Used 05/22/24 10:41 Are you ready to quit: No Tobacco cessation counseling provided: Yes Items discussed: Nicotine replacement Relapse Prevention: discussed the importance of a supportive environment, discussed negative mood or depression after quitting and discussed dietary, exercise and/or lifestyle changes Number of minutes spent counselin CPT code: 37751 - 4-10 Minutes PHQ-9: PHQ-9 Score PHQ-9: Total score 5 05/22/24 10:41 Depression Screening Interpretation: Positive Depression Screening Follow-up: Existing condition and In treatment Thrive Assessment: Date of Thrive Assessment Date Thrive assessed 05/22/24 05/22/24 10:41 Currently or been in a relationship where the following occur: I choose not to answer Const General: cooperative, comfortable, no acute distress, alert and awake; No confusion Orientation/consciousness: oriented to person, oriented to place, patient oriented x3 and No confusion HENMT Head: Yes normocephalic Ears: external ears normal and TM's normal bilaterally Face and sinus: No sinus tenderness Mouth: Normal oral and palatal mucosa present and tongue normal Teeth and gingiva: dentition normal and gingiva normal Throat: Yes posterior oropharynx normal, Yes tonsils normal and Yes uvula midline Eyes Conjunctivae: conjunctivae normal Sclerae: sclerae normal Pupils: Equal, round and reactive pupils present EOM: EOMs intact bilaterally Direct Ophthalmoscopy: No no photophobia Neck Neck: Yes no lymphadenopathy, No tender and Yes no JVD Thyroid: Thyroid normal Carotids: no bruits Chest Chest palpation & inspection: no tenderness Resp Effort & Inspection: normal respiratory effort, no audible wheezes, not labored and no stridor Auscultation: no crackles, no rales, no rhonchi and no wheezes Cardio Jugular venous distension: no JVD Rate: regular rate, not bradycardic and not tachycardic Rhythm: regular rhythm Bruits: no carotid bruits Peripheral pulses: Peripheral pulses 2+ throughout GI Inspection: Yes normal to inspection, No abdominal wall ecchymosis and No visible herniation Palpation (GI): Soft to palpation, nontender, no guarding, not rigid and No hepatosplenomegaly present Auscultation: normoactive bowel sounds General: Yes no CVA tenderness Back/Spine/Pelvis Back: no CVA tenderness and No back tenderness Cervical Spine: cervical ROM normal Thoracic/Lumbar Spine: thoracic and lumbar spine normal to inspection, straight leg raise negative bilaterally, No thoraco-lumbar ROM limited and No lumbar spinal tenderness Skin Lesions: no lesions Rashes: no rashes Wounds: no wounds Neuro General: oriented to person, oriented to place, patient oriented x3, CN's II-XI intact bilaterally and No confusion Cranial nerves: Yes Equal, round and reactive pupils present and Yes Normal accommodation reflex present Cognition (Neuro): normal cognition Speech: No Abnormal speech present Gait exam (Neuro): Normal gait present Motor exam (neuro): 5/5 motor strength present throughout Extrem Right upper extremity: full ROM; no cyanosis Left upper extremity: full ROM; no cyanosis Right lower extremity: no edema Left lower extremity: no edema Psych Appearance: grossly normal Mental Status: mental status grossly normal Affect: normal affect Attitude: cooperative Thought process: Normal thought process present Coding Level of Care Code Est Pt Prev Care 40-64y(15338) Diagnoses Annual physical exam Z00.00 Insomnia, unspecified type G47.00 Insomnia type: unspecified MDD (major depressive disorder), recurrent episode, moderate F33.1 Borderline high cholesterol E78.9 Opioid use disorder, moderate, dependence F11.20 Tobacco dependence F17.200 Colon cancer screening Z12.11 Additional Codes JEANIE-7 Assessment Billing - JEANIE-7 Assessment Tool: JEANIE-7 Assessment 42559 ([id number]) PHQ-9 - 37106 - PHQ-9 Billing: Yes ([id number]) Vital Signs *Quality* - CPT code: 69734 - 4-10 Minutes ([id number]) Assessment & Plan Assessment & Plan (1) Annual physical exam: Code(s): Z00.00 - Encounter for general adult medical examination without abnormal findings Category: Medical Plan: As per HPI (2) Insomnia: Code(s): G47.00 - Insomnia, unspecified Category: Medical Qualifiers: Insomnia type: unspecified Qualified Code(s): G47.00 - Insomnia, unspecified Plan: As per HPI patient has been having lot of trouble sleeping. He attributes his abnormal sleep pattern to opiate withdrawal. Has been trying hydroxyzine, melatonin and mirtazapine though has not been effective. He is willing to try Seroquel 25 mg he will also follow up with psychiatrist about this (3) MDD (major depressive disorder), recurrent episode, moderate: Code(s): F33.1 - Major depressive disorder, recurrent, moderate Category: Medical Plan: Patient's PHQ-9 score positive for depression which has been existing condition for him. Again speaking with a mental health therapist and a psychiatrist at this time. (4) Borderline high cholesterol: Code(s): E78.9 - Disorder of lipoprotein metabolism, unspecified Category: Medical Plan: Patient's most recent lipid panel showing borderline high cholesterol and LDL. He will try to make lifestyle and dietary modifications to reduce his cholesterol. Will recheck in 6 months. Goal LDL to be below 130 (5) Opioid use disorder, moderate, dependence: Code(s): F11.20 - Opioid dependence, uncomplicated Category: Medical Plan: Was previously on methadone therapy though has weaned off and now considering going on Vivitrol injections to stay clean and sober from illicit drug use. (6) Tobacco dependence: Code(s): F17.200 - Nicotine dependence, unspecified, uncomplicated Category: Medical Plan: Patient does understand he needs to quit smoking. He has reduced his smoking down to 5 cigarettes per day. He declines my offer to try nicotine replacement at this time. (7) Colon cancer screening: Code(s): Z12.11 - Encounter for screening for malignant neoplasm of colon Category: Medical Plan: Willing to do Cologuard Orders: Orders Complete Blood Count no Diff Today E78.9 - Disorder of lipoprotein metabolism, unspecified Lipid Panel Today E78.9 - Disorder of lipoprotein metabolism, unspecified Comprehensive Coden. Panel Fast Today E78.9 - Disorder of lipoprotein metabolism, unspecified Referrals Cologuard Test Z12.11 - Encounter for screening for malignant neoplasm of colon Medications: New quetiapine (Seroquel) 25 mg PO BEDTIME 30 days 30 tabs 1RF F33.1 - Major depressive disorder, recurrent, moderate, G47.00 - Insomnia, unspecified
[2024-05-22 10:41] VITALS: BP 134/82; PULSE 92; TEMP 36.9; O2SAT 97; BMI 19.0
--- OUTSIDE RECORDS SUMMARY | 2024-05-22 11:49 | XMS_ITS ---
Author Organization [facility] Address [address] [place] [phone] Care Team Providers Care Oxidation Engineer Name Role Phone No, PCP Primary Care Provider UnavailCapri Price Unavailable REASON FOR VISIT New Intake Encounters Encounter Location Date Provider Diagnosis [facility] [address] [place] [phone] 05/16/2024 Capri Muse Plan Of Treatment No Information Progress Notes * David SHAHreedDOB:1970 (54 yo M)Acc No.[id number]:05/16/2024 Case Management Patient:?Maxi SHAH Provider:?Capri Muse :1970???Age:54 Y???Sex:Male Jamey e:05/16/2024 Address:[address] [place], [place] [phone] Pcp:PCP No Subjective: * Chief Complaints: * ???1. New Intake. * HPI: ???Social Service:?Date of encounter?05/16/2024.?Interpretation for medical provider?New intake.?Action Taken?Social needs?State Id card, Social Security card.?Advocacy?none.?Follow-up Required:?yes.?Pt comprehension?Pt agrees with plan, Patient understood process and assisted with process.?Action taken (old)?form completion,, Items given to client, item obtained, Letter given to patient after photo copy made.? * Medical History:? Objective: * Vitals:? Assessment: Plan: * Treatment: * Images: Billing Information: * Visit Code:? * Procedure Codes:? Care Plan Details* * Sign off status: Completed true * Provider:?Capri Muse Date:? Generated for Justino boone/Donavan/Binh on:?05/22/2024 11:48 AM EST History and Physical Notes * HPI (History of Present Illness) Category Sub-Category Detail Notes Social Service Interpretation for medical provi charlene New intake Action taken (old) form completion,, It ems given to client, item obtained, Letter given to patient after photo copy made Advocacy none Follow-up Required: yes Pt comprehension Pt agrees with plan, Patient understood process and assisted with process Action Taken Social needs: State Id card, Soc ial Security card Date of encounter 05/16/2024
--- OUTSIDE RECORDS SUMMARY | 2024-05-22 11:49 | XMS_ITS | Patient Health Record ---
Author Organization [facility] Address [address], [place] [phone] Care Team Providers Care Aircraft Engine Mechanic Overhaul Name Role Phone No, PCP Primary Care Provider Unavailamy e Capri Muse Unavailable Reason For Referral No Information Encounters Encounter Location Date Provider Diagnosis [facility] [address] [place] [phone] 05/16/2024 Capir Muse Plan Of Treatment No Information Insurance Providers Payer Name Payer Address Payer Phone Subscriber Number Group Number Insured Name Patient Relationship to Insured Coverage Start Date Coverage End Date [place] Medicaid Standard [address] [place] [id number] Maxi Shah Self - patient is the insured
== END 2024-05-22 11:29 | disposition home or self-care (01) ==
PROVIDERS: PCP Physician Assistant; Visit Provider Physician Assistant
DX: Z00.00 Encounter for general adult medical examination without abnormal findings (principal); F33.1 Major depressive disorder, recurrent, moderate; F11.20 Opioid dependence, uncomplicated; G47.00 Insomnia, unspecified; E78.9 Disorder of lipoprotein metabolism, unspecified; F17.200 Nicotine dependence, unspecified, uncomplicated; Z12.11 Encounter for screening for malignant neoplasm of colon

== ENCOUNTER → 2024-05-22 10:36 | Outpatient (BNVA) | payer OTHER, SELFPAY | PROVIDERS: PCP Physician Assistant; Visit Provider Physician Assistant | DX: Z00.00 Encounter for general adult medical examination without abnormal findings (principal); G47.00 Insomnia, unspecified; F33.1 Major depressive disorder, recurrent, moderate; E78.9 Disorder of lipoprotein metabolism, unspecified; F11.20 Opioid dependence, uncomplicated; F17.200 Nicotine dependence, unspecified, uncomplicated; Z71.6 Tobacco abuse counseling | CPT/HCPCS: 96127; 99396 ==

== ENCOUNTER 2025-02-27 11:13 | Outpatient (AMB) | payer MEDICAID, SELFPAY ==
[2025-02-27 11:19] VITALS: BP 120/78; PULSE 90; RESP 18; TEMP 36.3; O2SAT 97
--- NOTE | 2025-02-27 11:19 | MHC.PC.OV ---
Vital Signs 02/27/25 11:19 Height 5 ft 9 in BP 120/78 Blood Pressure Location Lt brachial Position Sitting Respiration 18 Pulse 90 Pulse Source Pulse Oximeter Temp 97.3 F Temp Source Temporal Artery Scan Pulse Oximetry (%) 97 Oxygen Delivery Method Room Air Intake Visit Reasons: follow up on borderline cholesterol Intake Note: Patient is here today for a physical. Director Of Business Continuity Required: No Accompanied by: Self / Same As Patient Allergies seafood Allergy (Severe, Uncoded 05/22/24 10:55) anaphylaxis SEAFOOD Allergy (Unknown, Uncoded 05/22/24 10:55) SWELLING Tobacco use date assessed: 02/27/25 Dental Screening Dental Screen Date: 02/27/25 Did you have a dental visit in the last 12 months?: No Did you have a dental problem in the last 6 months where you did not have access to dental care?: No Was dental information given to patient?: No HPI HPI Comments History of Present Illness Details The patient is a 55-year-old male, accompanied by his therapeutic case manager presenting for follow-up on lab results and discussion of a recent relapse of substance abuse. Blood work from earlier this year revealed high cholesterol, with a total cholesterol of 234 mg/dL and an LDL of 155 mg/dL, as well as elevated liver enzymes. The patient has a history of depression, PTSD and substances abuse, for which he sees a psychiatrist and takes multiple medications. He reports he is currently struggling and has had frequent relapses. He is seeking assistance with building a case for Social Security services based on his condition. He will schedule an appointment with his PCP Frankie Wilcox to further address this. [facility] Medical History Depression PTSD (post-traumatic stress disorder) Opioid use disorder MDD (major depressive disorder), recurrent severe, without psychosis Asthma Surgical History Hx of appendectomy Family History Son Lymphoma Social History Household Members: None Housing: Apartment Do you presently have visiting nurse or other home services: Yes ([facility] in [place]) Alcohol intake: current Alcohol intake frequency: holidays/special occasions only Alcohol type: beer Patient Tobacco Use Status: Current everyday Tobacco user Tobacco use type: Cigarette Cigarette Packs Per Day: 1 Cigarettes Per Day: 5 Years Smoked: 35 e-Cigarette/Vaping Use: Never Used Second Hand Smoke Exposure: No Substance Use Type: Crack/Cocaine and Heroin service: No Current occupational status: unemployed Sexual orientation: Straight/Heterosexual Cognitive needs: No Hearing needs: No Vision needs: No Questionnaire PHQ-9 Over the last 2 weeks, how often have you been bothered by any of the following problems? 1. Little interest or pleasure in doing things: not at all 2. Feeling down, depressed, or hopeless: not at all 3. Trouble falling or staying asleep, or sleeping too much: nearly every day 4. Feeling tired or having little energy: several days 5. Poor appetite or overeating: several days 6. Feeling bad about yourself - or that you are a failure or have let yourself or your family down: not at all 7. Trouble concentrating on things, such as reading the newspaper or watching television: not at all 8. Moving or speaking so slowly that other people could have noticed. Or the opposite - being so fidgety or restless that you have been moving around a lot more than usual: not at all 9. Thoughts that you would be better off or of hurting yourself in some way: not at all Total score: 5 Depression Screening Interpretation: Positive Depression Screening Follow-up: Existing condition and In treatment Depression Screening Done: Yes 37976 - PHQ-9 Billing: Yes Source: Developed by Drs. Kendrick Hay, Samantha Ordoñez, Pito Gavin and colleagues, with an educational juan from [employer]. Thrive Questionnaire Date Thrive assessed: 02/27/25 I am a: Patient What is your living situation today?: I have a steady place to live Within the past 12 months, did the food you bought not last and you didn't have the money to get more?: Never true Within the past 12 months, did you worry whether your food would run out before you got money to buy more?: Never true Do you have trouble paying for medicines?: I choose not to answer this question Do you have trouble getting transportation to medical appointments?: No Do you have trouble paying your heating and electricity bill?: Yes Do you have trouble taking care of your child, family member or friend?: No Do you have trouble with day-to-day activities such as bathing, preparing meals, shopping, managing finances, etc.?: No Are you currently unemployed and looking for a job?: Yes Are you interested in more education?: No Please select the resources that you would like help with: None Currently or been in a relationship where the following occur: I choose not to answer THRIVE Score: 1 AUDIT C Alcohol Use Questionnaire (AUDIT-C) 1. How often do you have a drink containing alcohol?: Never 3. How often do you have six or more drinks on one occasion?: Never Total Score: 0 JEANIE-7 AMB Questionnaire JEANIE-7 Date JEANIE - 7 assessed: 02/27/25 Feeling nervous, anxious, or on edge: 2 = More than half the days Not being able to stop or control worryin = More than half the days Worrying too much about different things: 2 = More than half the days Trouble relaxin = More than half the days Being so restless that it is hard to sit still: 2 = More than half the days Becoming easily annoyed or irritable: 0 = Not at all Feeling afraid as if something awful might happen: 0 = Not at all Total JEANIE-7 score (0-4 normal; 5-9 mild; 10-14 moderate; 15-21 severe): 10 Source: Developed by Drs. Kendrick Hay, Samantha Ordoñez, Pito Gavin and colleagues, with an educational juan from [employer]. JEANIE-7 Assessment Billing JEANIE-7 Assessment Tool: JEANIE-7 Assessment 26630 Physical exam (Primary Care) Vital Signs: Last Vital Signs Temp 97.3 F 02/27/25 11:19 Pulse 90 02/27/25 11:19 Resp 18 02/27/25 11:19 BP 120/78 02/27/25 11:19 Pulse Ox 97 02/27/25 11:19 Oxygen Delivery Method Room Air 02/27/25 11:19 General: Well-appearing, alert, oriented ?3, in no acute distress. Cardiovascular: RRR, S1-S2 appreciated, no murmurs, rubs or gallops. Respiratory: Lungs clear to auscultation bilaterally, no wheezes, rales or rhonchi. Tobacco/Smoking Status: Tobacco use Status Tobacco use date assessed 02/27/25 02/27/25 11:21 Patient Tobacco Use Status Current everyday Tobacco 02/27/25 11:21 Tobacco use type Cigarette 02/27/25 11:21 e-Cigarette/Vaping Use Never Used 02/27/25 11:21 PHQ-9: PHQ-9 Score PHQ-9: Total score 5 02/27/25 11:46 Depression Screening Interpretation: Positive Depression Screening Follow-up: Existing condition and In treatment Thrive Assessment: Date of Thrive Assessment Date Thrive assessed 02/27/25 02/27/25 11:46 Currently or been in a relationship where the following occur: I choose not to answer Coding Level of Care Code Est Pt Level 3 (72453) Diagnoses Hyperlipidemia, unspecified hyperlipidemia type E78.5 Hyperlipidemia type: unspecified MDD (major depressive disorder), recurrent episode, moderate F33.1 Cocaine use disorder, moderate, dependence F14.20 Additional Codes JEANIE-7 Assessment Billing - JEANIE-7 Assessment Tool: JEANIE-7 Assessment 47421 ([id number]) PHQ-9 - 03676 - PHQ-9 Billing: Yes ([id number]) Assessment & Plan Assessment & Plan (1) Hyperlipidemia: Code(s): E78.5 - Hyperlipidemia, unspecified Category: Medical Qualifiers: Hyperlipidemia type: unspecified Qualified Code(s): E78.5 - Hyperlipidemia, unspecified Plan: Lipid panel from May 2024 reveals elevated cholesterol and LDL. Currently not on statin. will repeat lipid panel to further assess need for medication. (2) MDD (major depressive disorder), recurrent episode, moderate: Code(s): F33.1 - Major depressive disorder, recurrent, moderate Category: Medical Plan: The patient has a history of depression, PTSD and substances abuse, for which he sees a psychiatrist and takes multiple medications. He reports he is currently struggling and has had frequent relapses. He is seeking assistance with building a case for Social Security services based on his condition. He will schedule an appointment with his PCP Frankie Wilcox to further address this. (3) Cocaine use disorder, moderate, dependence: Code(s): F14.20 - Cocaine dependence, uncomplicated Category: Medical Plan: As above Orders: Orders Comprehensive [place]. Panel Fast Today E78.5 - Hyperlipidemia, unspecified Lipid Panel Today E78.5 - Hyperlipidemia, unspecified
--- OUTSIDE RECORDS SUMMARY | 2025-02-27 22:04 | XMS_ITS | Clinical Summary ---
Author Organization [employer] Address [address] [place] [address] Care Team Providers Care Acquisition Specialist Name Role Phone Unavailable Primary Care Provider Unavailabl e Social History Tobacco Use Types Packs/Day Years Used Date Smoking Tobacco: Never Assessed Sex and Gender Information Value Date Recorded Sex Assigned at Male 07/17/2024 3:02 PM EDT Legal Sex Male 3:01 PM EDT Gender Identity Male 07/17/2024 3:02 PM EDT Sexual Orientation Straight 07/17/2024 3: 02 PM EDT Plan of Treatment Health Maintenance Due Date Last Done Comments CT Colonography 1969 Colonoscopy 1969 Colorectal Cancer Screening 1969 Depression Screening 1969 FIT DNA/Cologuard 1969 FIT 1969 FOBT 1969 HIV Screening 1969 Lipid Panel 1969 SDOH Screening 1969 Sigmoidoscopy 1969 Disability Screening 1969 Alcohol/Substance Use Screening 1981 Tobacco Screening 1981 Hepatitis C Screening 1987 DTaP/Tdap/Td Vaccines (1 - Tdap) 02/02/1988 Hepatitis B Vaccines (1 of 3 - 19+ 3-dose series) 02/02/1988 Pneumococcal Vaccine: 50+ Ye ars (1 of 1 - PCV) 2019 Zoster Vaccines (1 of 2) 2019 COVID-19 Vaccine ( - 2024-2 6 season) 2024 Influenza Vaccine (#1) 2024 RSV Patients and Pa tients Aged 60 years or older (1 - 1-dose 75+ series) 02/02/2044 HIB Vaccines Aged Out No longer eligi ble based on patient's age to complete this topic HPV Vaccines Aged Out No longer eligi ble based on patient's age to complete this topic Hepatitis A Vaccines Aged Out No long er eligible based on patient's age to complete this topic IPV Vaccines Aged Out No longer eligi ble based on patient's age to complete this topic Meningococcal B Vaccine Aged Out No l onger eligible based on patient's age to complete this topic Meningococcal Vaccine Aged Out No henrique osman eligible based on patient's age to complete this topic RSV under 20 months Aged Out No longe r eligible based on patient's age to complete this topic Rotavirus Vaccines Aged Out No longer eligible based on patient's age to complete this topic Insurance #[address] [place] [address] [facility] STANDARD
--- OUTSIDE RECORDS SUMMARY | 2025-02-27 22:04 | XMS_ITS | Patient Health Record ---
Author Organization [facility] Address [address] [place] [address] Care Team Providers Care Clerk Of Works Name Role Phone NO, PCP Primary Care Provider [facility] Reason For Referral No Information Encounters Encounter Location Date Provider Diagnosis [facility] [address] [place] [id number] 05/16/2024 [facility] [id number] 07/04/2024 [facility] Plan Of Treatment No Information Insurance Providers Payer Name Payer Address Payer Phone Subscriber Number Group Number Insured Name Patient Relationship to Insured Coverage Start Date Coverage End Date [place] [address] [place] [address] [id number] Maxi Shah Self - patient is the insured
== END 2025-02-27 12:07 | disposition home or self-care (01) ==
LOC: HO.HMCH 11:13
PROVIDERS: PCP Physician Assistant; Visit Provider Student in an Organized Health Care Education/Training Program
DX: E78.5 Hyperlipidemia, unspecified (principal); F33.1 Major depressive disorder, recurrent, moderate; F14.20 Cocaine dependence, uncomplicated

== ENCOUNTER → 2025-02-27 11:13 | Outpatient (BNVA) | payer MEDICAID, SELFPAY | PROVIDERS: PCP Physician Assistant; Visit Provider Student in an Organized Health Care Education/Training Program | DX: F33.1 Major depressive disorder, recurrent, moderate (principal); F14.20 Cocaine dependence, uncomplicated; E78.5 Hyperlipidemia, unspecified | CPT/HCPCS: 96127; 99212 ==

== ENCOUNTER 2025-03-06 11:48 | Outpatient (AMB) | payer MEDICAID, SELFPAY ==
[2025-03-06 11:52] VITALS: BP 104/66; PULSE 77; TEMP 36.3; O2SAT 95; BMI 16.7
--- NOTE | 2025-03-06 11:52 | A.OFFPC_ITS ---
Vital Signs 03/06/25 11:52 Height 5 ft 9 in Weight 113 lb 2 oz BMI 16.7 BP 104/66 Blood Pressure Location Lt brachial Position Sitting Pulse 77 Pulse Source Pulse Oximeter Temp 97.3 F Temp Source Temporal Artery Scan Pulse Oximetry (%) 95 Oxygen Delivery Method Room Air Intake Visit Reasons: 1 week follow up Allergies seafood Allergy (Severe, Uncoded 03/06/25 11:55) anaphylaxis SEAFOOD Allergy (Unknown, Uncoded 03/06/25 12:18) SWELLING Medication List - Last Reconciled 03/06/25 by Frankie Wilcox PA-C bupropion HCl XL 300 mg PO DAILY 30 days clonidine HCl 0.1 mg See Protocol PO Q4H PRN 30 days hydroxyzine HCl 50 mg PO Q6H PRN 30 days magnesium hydroxide (Milk of Magnesia) 30 mL PO DAILY PRN 30 days methocarbamol 750 mg PO 3XD mirtazapine mg feeding tube multivitamin (Daily-Mere tablet) 1 tab PO DAILY 30 days quetiapine (Seroquel) 25 mg PO BEDTIME 30 days Tobacco use date assessed: 03/06/25 Dental Screening Dental Screen Date: 03/06/25 Did you have a dental visit in the last 12 months?: No Did you have a dental problem in the last 6 months where you did not have access to dental care?: No Was dental information given to patient?: No HPI 1 week follow up HPI Details The patient is a 55 year old individual presenting with a relapse of substance use and is seeking guidance for detoxification. The patient reports a relapse involving crack cocaine and some heroin, with crack cocaine being the primary substance of concern. Heroin use is reportedly limited due to being on methadone. The patient uses substances via insufflation and denies intravenous use. The patient reports using crack cocaine almost daily, contingent on financial resources, and finds it difficult to stop despite wanting to. This relapse has led to a significant weight loss of approximately 15 pounds, from 130 lbs to 113 lbs, and the patient reports feeling very thin. The patient has a history of participating in residential treatment programs, including at [facility] and a three-month stay following detox in [place], which the patient believes was left too soon. The patient reports experiencing depression and anxiety. The patient has a therapist and psychiatrist from [facility] but has not seen them since the relapse began. [facility] Medical History Depression PTSD (post-traumatic stress disorder) Opioid use disorder MDD (major depressive disorder), recurrent severe, without psychosis Asthma Surgical History Hx of appendectomy Family History Son Lymphoma Social History Household Members: None Housing: Apartment Do you presently have visiting nurse or other home services: Yes ([facility] in [place]) Alcohol intake: current Alcohol intake frequency: holidays/special occasions only Alcohol type: beer Patient Tobacco Use Status: Current everyday Tobacco user Tobacco use type: Cigarette Cigarette Packs Per Day: 1 Cigarettes Per Day: 5 Years Smoked: 35 e-Cigarette/Vaping Use: Never Used Second Hand Smoke Exposure: No Substance Use Type: Crack/Cocaine and Heroin service: No Current occupational status: unemployed Sexual orientation: Straight/Heterosexual Cognitive needs: No Hearing needs: No Vision needs: No Questionnaire PHQ-9 Over the last 2 weeks, how often have you been bothered by any of the following problems? 1. Little interest or pleasure in doing things: not at all 2. Feeling down, depressed, or hopeless: not at all 3. Trouble falling or staying asleep, or sleeping too much: nearly every day 4. Feeling tired or having little energy: several days 5. Poor appetite or overeating: several days 6. Feeling bad about yourself - or that you are a failure or have let yourself or your family down: not at all 7. Trouble concentrating on things, such as reading the newspaper or watching television: not at all 8. Moving or speaking so slowly that other people could have noticed. Or the opposite - being so fidgety or restless that you have been moving around a lot more than usual: not at all 9. Thoughts that you would be better off or of hurting yourself in some way: not at all Total score: 5 Depression Screening Interpretation: Positive Depression Screening Follow-up: Existing condition and In treatment Depression Screening Done: Yes 40398 - PHQ-9 Billing: Yes Source: Developed by Drs. Kendrick Hay, Samantha Ordoñez, Pito Gavin and colleagues, with an educational juan from [employer]. Thrive Questionnaire Date Thrive assessed: 05/22/24 I am a: Patient What is your living situation today?: I have a steady place to live Within the past 12 months, did the food you bought not last and you didn't have the money to get more?: Never true Within the past 12 months, did you worry whether your food would run out before you got money to buy more?: Never true Do you have trouble paying for medicines?: I choose not to answer this question Do you have trouble getting transportation to medical appointments?: No Do you have trouble paying your heating and electricity bill?: Yes Do you have trouble taking care of your child, family member or friend?: No Do you have trouble with day-to-day activities such as bathing, preparing meals, shopping, managing finances, etc.?: No Are you currently unemployed and looking for a job?: Yes Are you interested in more education?: No Please select the resources that you would like help with: None Currently or been in a relationship where the following occur: I choose not to answer THRIVE Score: 1 AUDIT C Alcohol Use Questionnaire (AUDIT-C) 1. How often do you have a drink containing alcohol?: Never 3. How often do you have six or more drinks on one occasion?: Never Total Score: 0 JEANIE-7 AMB Questionnaire JEANIE-7 Date JEANIE - 7 assessed: 02/27/25 Feeling nervous, anxious, or on edge: 2 = More than half the days Not being able to stop or control worryin = More than half the days Worrying too much about different things: 2 = More than half the days Trouble relaxin = More than half the days Being so restless that it is hard to sit still: 2 = More than half the days Becoming easily annoyed or irritable: 0 = Not at all Feeling afraid as if something awful might happen: 0 = Not at all Total JEANIE-7 score (0-4 normal; 5-9 mild; 10-14 moderate; 15-21 severe): 10 Source: Developed by Samantha Serrano, Pito Gavin and colleagues, with an educational juan from [employer]. JEANIE-7 Assessment Billing JEANIE-7 Assessment Tool: JEANIE-7 Assessment 96011 Review of Systems Const Denies headache(s) Eyes Denies loss of vision ENT Denies vertigo, Denies dizziness, Denies headache(s) and Denies sore throat Card Denies chest pain, Denies leg edema and Denies lightheadedness Resp Denies cough, Denies hemoptysis and Denies wheezing GI Denies abdominal pain, Denies melena, Denies constipation, Denies diarrhea and Denies vomiting Denies dysuria, Denies urinary frequency and Denies urinary urgency Musc Denies arthralgias, Denies joint swelling, Denies numbness and Denies tingling Neuro Denies Abnormal speech present, Denies behavioral changes, Denies vertigo, Denies dizziness, Denies headache(s), Denies loss of vision, Denies memory loss, Denies numbness and Denies tingling Psych Denies anxiety, Denies behavioral changes, Denies depression, Denies memory loss and Denies panic attacks Db/Lymph Denies easy bleeding and Denies easy bruising Aller/Immun Denies wheezing Physical exam (Primary Care) Vital Signs: Last Vital Signs Temp 97.3 F 03/06/25 11:52 Pulse 77 03/06/25 11:52 BP 104/66 03/06/25 11:52 Pulse Ox 95 03/06/25 11:52 Oxygen Delivery Method Room Air 03/06/25 11:52 BMI result Body Mass Index 16.7 BMI Assessment/Plan discussion: Low BMI Low, Plan discussed: lifestyle, increase calorie intake and dietary Tobacco/Smoking Status: Tobacco use Status Tobacco use date assessed 03/06/25 03/06/25 11:58 Patient Tobacco Use Status Current everyday Tobacco 03/06/25 11:58 Tobacco use type Cigarette 03/06/25 11:58 e-Cigarette/Vaping Use Never Used 03/06/25 11:58 PHQ-9: PHQ-9 Score PHQ-9: Total score 5 03/06/25 11:58 Depression Screening Interpretation: Positive Depression Screening Follow-up: Existing condition and In treatment Thrive Assessment: Date of Thrive Assessment Date Thrive assessed 05/22/24 03/06/25 11:58 Currently or been in a relationship where the following occur: I choose not to answer Const Other: VERY THIN-APPEARING General: healthy appearing, no acute distress, alert and awake Nutritional Appearance: well nourished Orientation/consciousness: oriented to person, oriented to place and oriented to time HENMT Ears: TM's normal bilaterally General nose exam: Normal nasal mucous membranes and turbinates present Eyes Conjunctivae: conjunctivae normal Sclerae: sclerae normal Pupils: Equal, round and reactive pupils present Neck Neck: Yes no lymphadenopathy and Yes no JVD Thyroid: Thyroid normal Carotids: no bruits Resp Effort & Inspection: normal respiratory effort and not tachypneic Auscultation: no crackles, no rales, no rhonchi and no wheezes Cardio Rate: regular rate Rhythm: regular rhythm Heart sounds: no murmurs and normal S1 and S2 GI Palpation (GI): Soft to palpation, nontender, no hepatomegaly and no splenomegaly Auscultation: normal bowel sounds Skin General skin exam: no rashes or lesions noted and dry skin Neuro General: oriented to person, oriented to place and oriented to time Cranial nerves: Yes Equal, round and reactive pupils present Speech: No Abnormal speech present Gait exam (Neuro): Normal gait present Motor exam (neuro): no tremor noted Extrem Right upper extremity: full ROM Left upper extremity: full ROM Right lower extremity: full ROM; no edema Left lower extremity: full ROM; no edema Psych Mental Status: mental status grossly normal Speech and movement: Normal speech and movement present Affect: normal affect Attitude: cooperative Thought process: Normal thought process present Office Procedures Flu Questionnaire Does the patient have a severe egg allergy?: No Does the patient have severe life threatening allergies?: No Does the patient have a fever or illness today?: No Has the patient ever had Guillain-Nadeau Syndrome?: No Has the patient ever had any past reaction to a flu shot?: No Immunizations Fluarix [id number] (PF) 45 mcg (15 mcg x 3)/0.5 mL IM syringe Performing Provider: Frankie Wilcox PA-C [facility] Administered by: Freda Lopez CMA on 03/06/25 11:59 Dose Route Admin Location Dispensed Lot Number Expiration Date [facility] Storehouse Clerk 0.5 mL IM Left Deltoid 0.5 mL [id number] 10/08/25 [id number] VIS Given Date VIS Provided VIS Publication Date 03/06/25 Single Vaccine 24 Eligibility Eligibility Date Funding Source Not [facility] Eligible 03/06/25 Private Coding Level of Care Code Est Pt Level 3 (91288) Diagnoses Cocaine use disorder, moderate, dependence F14.20 Additional Codes PHQ-9 - 76657 - PHQ-9 Billing: Yes ([id number]) JEANIE-7 Assessment Billing - JEANIE-7 Assessment Tool: JEANIE-7 Assessment 28444 ([id number]) Assessment & Plan Assessment & Plan (1) Cocaine use disorder, moderate, dependence: Code(s): F14.20 - Cocaine dependence, uncomplicated Category: Medical Plan: The patient was counseled on addiction as a chronic disease and the importance of prioritizing sobriety. For substance use disorder, the patient was advised to seek inpatient detoxification by presenting to a hospital emergency room or a crisis center like [facility]. The option was given to proceed to the ER immediately or after settling personal affairs, with an offer to call the ER ahead of time. To support long-term recovery, it was strongly recommended that the patient cons ider a treatment program outside of the current geographic area to reduce access to drugs and relapse triggers. The patient was encouraged to reconnect with their therapist and psychiatrist from [facility] for ongoing mental health support for depression and anxiety. The significant weight loss and hypotension were noted to be likely related to the substance use, and improvement is expected with sobriety. Orders: Orders Influenza [id number] Immunization Today Z23 - Encounter for immunization
== END 2025-03-06 12:34 | disposition home or self-care (01) ==
LOC: HO.HMCH 11:48
PROVIDERS: PCP Physician Assistant; Visit Provider Physician Assistant
DX: Z23 Encounter for immunization (principal); F14.20 Cocaine dependence, uncomplicated

== ENCOUNTER → 2025-03-06 11:48 | Outpatient (BNVA) | payer MEDICAID, SELFPAY | PROVIDERS: PCP Physician Assistant; Visit Provider Physician Assistant | DX: F14.20 Cocaine dependence, uncomplicated (principal); F11.20 Opioid dependence, uncomplicated; Z23 Encounter for immunization | CPT/HCPCS: 90471; 90656; 96127; 99212 ==